=== PATIENT | female | born 1975 | race Two or more races ===

== ENCOUNTER 2017-05-07 19:46 | Emergency (ER) | payer OTHER ==
--- NOTE | 2017-05-07 20:12 | PDOC ---
Rapid Medical Evaluation Time Seen by Provider: 05/07/17 20:04 Medical Evaluation: Allergies Allergy/AdvReac Type Severity Reaction Status Date / Time cefazolin AdvReac Itching Verified 04/29/17 11:58 05/07/17 20:06 I have performed a brief in-person evaluation of this patient. I have performed a brief in-person evaluation of this patient. The patient presents with a chief complaint of: continual drainage from left arm wound, now with generalized rash. Completed clindamycin on Thursday. Pertinent physical exam findings: noted generalized papular rash greater around left forearm, wound draining ss fluid I have ordered the following: The patient will proceed to the ED for further evaluation. 05/07/17 20:09
[2017-05-07 21:04] VITALS: BP 107/70; PULSE 84; TEMP 98.2; BMI 28.3
[2017-05-07] MEDS ORDERED: RANITIDINE HCL 150 MG TABLET (FP) PO ONE (21:48)
[2017-05-07] MEDS ORDERED: diphenhydrAMINE HCL 25 MG CAPSULE (FP) PO ONE ×2 (21:48→21:52)
[2017-05-07] MEDS ORDERED: DEXAMETHASONE SOD PHOSPHATE 10 MG/1 ML VIAL IM ONE (21:49)
[2017-05-07] MEDS ORDERED: RANITIDINE HCL 150 MG TABLET (FP) ONE (21:52)
[2017-05-07] MEDS ORDERED: DEXAMETHASONE SOD PHOSPHATE 10 MG/1 ML VIAL ONE (21:52)
--- NOTE | 2017-05-07 21:53 | PDOC ---
History of Present Illness - General Chief Complaint: Rash Stated Complaint: RASH Time Seen by Provider: 05/07/17 20:04 History Source: Patient Exam Limitations: No Limitations - History of Present Illness Initial Comments: 05/07/17 21:49 Patient came for evaluation of diffuse pruritic rash covering all of body. was admitted last week for abscess of her left forearm, received 3 days of IV antibiotics and was discharged home on by mouth clindamycin. has never had an ALLERGY to any medication or antibiotics. Completed the course of clindamycin by mouth 2 days ago. onset of rash occurred yesterday on her torso and has spread over all of body today. Denies facial swelling with swelling tongue swelling or difficulty breathing although has some mild sore throat pain. Denies fever, states left arm abscess is resolving well. Timing/Duration: unsure, 24 hours Severity: moderate, severe Associated Symptoms: reports: malaise, rash. denies: fever/chills, nausea/ vomiting Past History - Travel Traveled outside of the country in the last 30 days: No Close contact w/someone who was outside of country & ill: No - Past Medical History Allergies/Adverse Reactions: Allergies Allergy/AdvReac Type Severity Reaction Status Date / Time cefazolin AdvReac Itching Verified 05/07/17 20:08 Home Medications: Ambulatory Orders Cetirizine HCl [Zyrtec -] 10 mg PO DAILY #10 tablet 05/07/17 Diphenhydramine HCl [Benadryl -] 25 mg PO Q8H PRN #21 capsule 05/07/17 Ranitidine [Zantac -] 300 mg PO BID #20 tablet 05/07/17 Anemia: No Asthma: No Cancer: No Cardiac Disorders: No CVA: No COPD: No CHF: No Dementia: No Diabetes: No GI Disorders: No Disorders: No HTN: No Hypercholesterolemia: No Liver Disease: No Seizures: No Thyroid Disease: No - Surgical History Abdominal Surgery: No Appendectomy: No Cardiac Surgery: No Cholecystectomy: No Lung Surgery: No Neurologic Surgery: No Orthopedic Surgery: No - Suicide/Smoking/Psychosocial Hx Smoking History: Never smoked Have you smoked in the past 12 months: No Information on smoking cessation initiated: No Hx Alcohol Use: No Drug/Substance Use Hx: No Substance Use Type: None Hx Substance Use Treatment: No Review of Systems - Review of Systems Able to Perform ROS?: Yes Is the patient limited Micronesian proficient: Yes Constitutional: Yes: Symptoms Reported, See HPI, Loss of Appetite, Malaise. No : Chills, Fever HEENTM: Yes: See HPI. No: Symptoms Reported, Throat Pain, Throat Swelling, Mouth Pain Respiratory: Yes: See HPI. No: Symptoms reported, Cough, Wheezing *Physical Exam - Vital Signs Last Vital Signs Temp Pulse Resp BP Pulse Ox 98.2 F 84 18 107/70 99 05/07/17 21:02 05/07/17 21:02 05/07/17 21:02 05/07/17 21:02 05/07/17 21:02 - Physical Exam General Appearance: Yes: Nourished, Appropriately Dressed, Apparent Distress, Mild Distress HEENT: positive: TMs Normal, Pharynx Normal (redness swelling exudate or airway edema) Neck: positive: Supple. negative: Tender, Lymphadenopathy (R), Lymphadenopathy (L) Respiratory/Chest: positive: Lungs Clear, Normal Breath Sounds. negative: Wheezing Cardiovascular: positive: Regular Rate Integumentary: positive: Other (maculopapular rash blanching and pruritic lesions covering all of including face neck torso and extremities. Has and granulating well without purulent drainage or fluctuance to left lateral forearm. 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 Improved after Benadryl, Zantac, and 10 mg of by mouth Decadron. Understands need for continued antihistamineuse and follow-up with PMD in 2-3 days. Also understands if symptoms worsen or has swelling to face lips tongue or problhing to call 911. *DC/Admit/Observation/Transfer Diagnosis at time of Disposition: Allergic reaction caused by a drug Qualifiers: Encounter type: initial encounter Qualified Code(s): T78.40XA - Allergy, unspecified, initial encounter - Discharge Dispostion Disposition: HOME Condition at time of disposition: Stable Admit: No - Patient Instructions Printed Discharge Instructions: DI for Adverse Drug Reaction -- Allergic Additional Instructions: Rest, drink lots of fluids: Teas, water, soups Saltwater gargles. Consider humidifier in room at night Lots of handwashing and good hygiene Continue antihistamines daily until rash is resolvedr; Zyrtec, Claritin, Gerda during the daytime and Benadryl at nighttime as will make sleepy Zantac once in AM and repeat at night= both these medications for 3 days. Tylenol or Motrin for fever and pain Followup with private physician in one to 2 days Consider following up with an clinical tech/flower arranger for skin testing and possible allergy shots Return to emergency department for worsened symptoms, swelling to face, tongue, probllems breathing, fevers, dehydration - Post Discharge Activity Forms/Work/School Notes: Back to Work
== END 2017-05-07 22:35 | disposition home or self-care (01) ==
LOC: JERFT 19:46 → SUPCPDRO 19:46 → JERFT 22:35
PROC: 3E0233Z Introduction of Anti-inflammatory into Muscle, Percutaneous Approach (ICD-10-PCS; principal; 2017-05-07)
DX: T36.8X5A Adverse effect of other systemic antibiotics, initial encounter (principal)
CPT/HCPCS: 99281-25

== ENCOUNTER 2019-05-23 22:21 | Emergency (ER) | payer OTHER ==
[2019-05-23 22:27] VITALS: BP 119/52; PULSE 71; TEMP 98.8; BMI 28.3
--- NOTE | 2019-05-24 00:59 | PDOC ---
*Physical Exam - Vital Signs Last Vital Signs Temp Pulse Resp BP Pulse Ox 98.8 F 71 18 119/52 L 100 05/23/19 22:25 05/23/19 22:25 05/23/19 22:25 05/23/19 22:25 05/23/19 22:25 Medical Decision Making - Medical Decision Making 05/24/19 00:59 Patient seen by the advanced practice provider under my direct supervision. Ancillary testing reviewed as necessary. I agree with plan as outlined by the advanced practice provider. Discharge - Discharge Information Problems reviewed: Yes Clinical Impression/Diagnosis: URI (upper respiratory infection) Qualifiers: URI type: unspecified URI Qualified Code(s): J06.9 - Acute upper respiratory infection, unspecified Disposition: HOME - Additional Discharge Information Prescriptions: Fluticasone Prop 0.05% Nasal [Flonase -] 1 - 2 spray NS BID #1 spray.pump Ibuprofen 600 mg PO QID PRN #20 tablet PRN Reason: Pain - Follow up/Referral - Patient Discharge Instructions Patient Printed Discharge Instructions: Common Cold Additional Instructions: Drink plenty of fluids. Take ibuprofen every 6 hours as needed for pain Use Flonase as prescribed. Follow-up with your doctor as soon as possible. Return to the emergency room for any worsening symptoms. - Post Discharge Activity Work/Back to School Note: Back to Work
[2019-05-24] MEDS ORDERED: IBUPROFEN 600 MG TABLET (FP) PO ONE ×2 (01:01→03:02)
--- NOTE | 2019-05-24 01:01 | PDOC ---
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 denies fever. reports chills. denies nausea, vomiting, diarrhea denies recent travel, prolonged sitting, OCP use Past History - Past Medical History Allergies/Adverse Reactions: Allergies Allergy/AdvReac Type Severity Reaction Status Date / Time cefazolin AdvReac Itching Verified 05/23/19 22:27 Home Medications: Ambulatory Orders Cetirizine HCl [Zyrtec -] 10 mg PO DAILY #10 tablet 05/07/17 Diphenhydramine HCl [Benadryl -] 25 mg PO Q8H PRN #21 capsule 05/07/17 Ranitidine [Zantac -] 300 mg PO BID #20 tablet 05/07/17 Fluticasone Prop 0.05% Nasal [Flonase -] 1 - 2 spray NS BID #1 spray.pump Ibuprofen 600 mg PO QID PRN #20 tablet 05/24/19 Anemia: No Asthma: No Cancer: No Cardiac Disorders: No CVA: No COPD: No CHF: No Dementia: No Diabetes: No GI Disorders: No Disorders: No HTN: No Hypercholesterolemia: No Liver Disease: No Seizures: No Thyroid Disease: No - Surgical History Abdominal Surgery: No Appendectomy: No Cardiac Surgery: No Cholecystectomy: No Lung Surgery: No Neurologic Surgery: No Orthopedic Surgery: No - Psycho Social/Smoking Cessation Hx Smoking History: Never smoked Have you smoked in the past 12 months: No Information on smoking cessation initiated: No Hx Alcohol Use: No Drug/Substance Use Hx: No Substance Use Type: None Hx Substance Use Treatment: No Review of Systems - Review of Systems Able to Perform ROS?: Yes Is the patient limited Russian proficient: No Constitutional: Yes: Chills. No: Symptoms Reported, See HPI, Diaphoresis, Fever , Loss of Appetite, Malaise, Night Sweats, Weakness, Weight Stable, Unintentional Wgt. Loss, Unexplained wgt Loss, Other HEENTM: Yes: Nose Congestion, Throat Pain Respiratory: Yes: Cough Cardiac (ROS): Yes: Chest Pain (worse with movement) *Physical Exam - Vital Signs Last Vital Signs Temp Pulse Resp BP Pulse Ox 98.8 F 71 18 119/52 L 100 05/23/19 22:25 05/23/19 22:25 05/23/19 22:25 05/23/19 22:25 05/23/19 22:25 - Physical Exam General Appearance: Yes: Appropriately Dressed HEENT: positive: Pharynx Normal, Nasal Congestion Respiratory/Chest: positive: Chest Tender (left anterior chest tenderness. reproducible pain), Lungs Clear, Normal Breath Sounds Cardiovascular: positive: Regular Rhythm, Regular Rate Gastrointestinal/Abdominal: positive: Normal Bowel Sounds, Soft. negative: Tender Medical Decision Making - Medical Decision Making 05/24/19 01:12 A: URI P: ibuprofen ekg chest xray Discharge - Discharge Information Problems reviewed: Yes Clinical Impression/Diagnosis: URI (upper respiratory infection) Qualifiers: URI type: unspecified URI Qualified Code(s): J06.9 - Acute upper respiratory infection, unspecified Disposition: HOME - Additional Discharge Information Prescriptions: Fluticasone Prop 0.05% Nasal [Flonase -] 1 - 2 spray NS BID #1 spray.pump Ibuprofen 600 mg PO QID PRN #20 tablet PRN Reason: Pain - Follow up/Referral - Patient Discharge Instructions Patient Printed Discharge Instructions: Common Cold Additional Instructions: Drink plenty of fluids. Take ibuprofen every 6 hours as needed for pain Use Flonase as prescribed. Follow-up with your doctor as soon as possible. Return to the emergency room for any worsening symptoms. - Post Discharge Activity Work/Back to School Note: Back to Work
--- NOTE | 2019-05-24 10:32 | EKG ---
Test Reason : Blood Pressure : / mmHG Vent. Rate : 056 BPM Atrial Rate : 056 BPM P-R Int : 162 ms QRS Dur : 084 ms QT Int : 406 ms P-R-T Axes : 062 029 043 degrees QTc Int : 391 ms SINUS BRADYCARDIA OTHERWISE NORMAL ECG Confirmed by MD JACINTA, KEYON ([id number]) on 05/24/2019 10:32:19 AM Referred By: Confirmed By:KEYON WORKMAN MD
== END 2019-05-24 03:00 | disposition home or self-care (01) ==
LOC: JER 22:21
DX: J06.9 Acute upper respiratory infection, unspecified (principal); Z88.1 Allergy status to other antibiotic agents
CPT/HCPCS: 71046-TC-FY; 93005; 93010; 99281-25

== ENCOUNTER 2019-08-23 11:19 | Emergency (ER) | payer OTHER ==
[2019-08-23 11:40] VITALS: TEMP 98.1; BMI 25.7
[2019-08-23] MEDS ORDERED: SODIUM CHLORIDE 1,000 ML IV STA (11:54)
[2019-08-23] MEDS ORDERED: ONDANSETRON 4 MG/2 ML VIAL IVPUSH ONE (11:55)
[2019-08-23] MEDS ORDERED: KETOROLAC TROMETHAMINE 15 MG/ML VIAL IVPUSH ONE (11:56)
--- NOTE | 2019-08-23 12:11 | PDOC ---
History of Present Illness - General History Source: Patient Exam Limitations: No Limitations - History of Present Illness Initial Comments: 08/23/19 12:05 Patient is a 44-year-old female presents to the ED with sudden onset of left lower and suprapubic abdominal pain. She states the pain was sharp and strong. It radiates to her left flank. She denies any dysuria or hematuria. She states the pain was so strong that she vomited one time and it was yellow/white in color. She denies any diarrhea. She has not taken anything for pain. She states the pain has not subsided since this morning. She denies any fevers or chills. The patient denies any past medical history and is allergic to cefazolin. <Letty Tineo - Last Filed: 08/23/19 15:06> <Neisha Velasco - Last Filed: 08/26/19 14:58> - General Chief Complaint: Pain Stated Complaint: ABD PAIN/VOMITING Time Seen by Provider: 08/23/19 11:47 Past History - Past Medical History Anemia: No Asthma: No Cancer: No Cardiac Disorders: No CVA: No COPD: No CHF: No Dementia: No Diabetes: No GI Disorders: No Disorders: No HTN: No Hypercholesterolemia: No Liver Disease: No Seizures: No Thyroid Disease: No - Surgical History Abdominal Surgery: No Appendectomy: No Cardiac Surgery: No Cholecystectomy: No Lung Surgery: No Neurologic Surgery: No Orthopedic Surgery: No - Psycho Social/Smoking Cessation Hx Smoking History: Never smoked Have you smoked in the past 12 months: No Hx Alcohol Use: No Drug/Substance Use Hx: No Substance Use Type: None Hx Substance Use Treatment: No <Letty Tineo - Last Filed: 08/23/19 15:06> <Neisha Velasco - Last Filed: 08/26/19 14:58> - Past Medical History Allergies/Adverse Reactions: Allergies Allergy/AdvReac Type Severity Reaction Status Date / Time cefazolin AdvReac Itching Verified 08/23/19 11:36 Home Medications: Ambulatory Orders Hydrocodone/Acetaminophen [[place] 5-325 Tablet] 1 each PO Q6H PRN 3 Days #12 tablet MDD 4 08/23/19 Ranitidine [Zantac -] 150 mg PO DAILY 08/23/19 Review of Systems - Review of Systems Comments:: 08/23/19 12:06 - Review of Systems Able to Perform ROS?: Yes Constitutional: No: Fever, Chills, Loss of Appetite, Night Sweats, Weakness HEENTM: No: Eye Pain, Vision changes, Ear Pain, Throat Pain, Throat Swelling, Mouth Pain, Difficulty Swallowing Respiratory: No: Cough, Shortness of Breath, Wheezing, Sputum Production Cardiac (ROS): No: Chest Pain, Chest Tightness, Palpitations, Irregular Heart Beat, Edema ABD/GI: No: Diarrhea; Positive: nausea, vomiting, left lower abdominal pain, left flank pain : No Dysuria, No Hematuria, No Frequency, No Urgency, No Vaginal Discharge/ Pain Musculoskeletal: No: Muscle Pain, Back Pain, Joint Pain, Muscle Weakness, Neck Pain Integumentary: No: Lesions, Rash Neurological: No: Headache, Numbness, Tingling, Weakness, Speech Difficulties <Letty Tineo - Last Filed: 08/23/19 15:06> *Physical Exam - Vital Signs Last Vital Signs Temp Pulse Resp BP Pulse Ox 98.1 F 78 18 111/60 98 08/23/19 11:36 08/23/19 11:36 08/23/19 11:36 08/23/19 11:36 08/23/19 11:36 - Physical Exam 08/23/19 12:08 - Physical Exam General Appearance: Nourished, Appropriately Dressed, No Distress HEENT: EOMI, Normal Voice, No Pharyngeal Erythema, No Muffled/Hoarse voice, No Tonsillar Exudate, No Tonsillar Erythema, No Nasal Congestion, No Rhinorrhea, Hearing Grossly Normal, TMs Normal, No TM Bulging, No TM Dullness, No TM Erythema Neck: Supple, No Lymphadenopathy (R), No Lymphadenopathy (L), No Rigidity, No Decreased range of motion Respiratory/Chest: Lungs Clear, Normal Breath Sounds. No Respiratory Distress, No Accessory Muscle Use Cardiovascular: Regular Rhythm, Regular Rate, S1, S2 Gastrointestinal/Abdominal: Normal Bowel Sounds, Soft. No Guarding, No Rebound, No Rigidity; Left mid and lower abdominal tenderness to palpation, + suprapubic tenderness to palpation, no CVA tenderness b/l Musculoskeletal: Normal Inspection. No Decreased Range of Motion Extremity: Normal Capillary Refill, Normal Inspection Integumentary: Normal Color, Dry. No Rash Neurologic: copy coordinator II-XII NML intact, Fully Oriented, Alert, Normal Mood/Affect, Normal Response <Letty iTneo - Last Filed: 08/23/19 15:06> - Vital Signs Last Vital Signs Temp Pulse Resp BP Pulse Ox 98.1 F 71 18 101/68 99 08/23/19 11:36 08/23/19 15:57 08/23/19 15:57 08/23/19 15:57 08/23/19 15:57 <Neisha Velasco - Last Filed: 08/26/19 14:58> ED Treatment Course - LABORATORY CBC & Chemistry Diagram: 08/23/19 12:59 08/23/19 12:59 - ADDITIONAL ORDERS Additional order review: 08/23/19 15:07 Laboratory Tests 08/23/19 08/23/19 12:59 12:59 Urine Color Yellow Urine Appearance Clear Urine pH 8.5 H D Ur Specific [place] 1.010 Urine Protein Negative Urine Glucose (UA) Negative Urine Ketones Negative Urine Blood Negative Urine Nitrite Negative Urine Bilirubin Negative Urine Urobilinogen 0.2 Ur Leukocyte Esterase Negative Urine HCG, Qual Negative - RADIOLOGY Radiology Studies Ordered: Category Date Time Status ABDOMEN & PELVIS CT W/O CONTR [CT] Stat CT Scan 08/23/19 11:56 Ordered <Letty Tineo - Last Filed: 08/23/19 15:06> - LABORATORY CBC & Chemistry Diagram: 08/23/19 12:59 08/23/19 12:59 - ADDITIONAL ORDERS Additional order review: 08/23/19 12:59 Urine Culture - Final Urine - Urine Clean Catch NO GROWTH OBTAINED 08/23/19 12:59 RBC 4.27 MCV 91.2 MCHC 33.6 RDW 13.1 MPV 6.8 L Neutrophils % 60.3 Lymphocytes % 30.1 D Monocytes % 8.8 Eosinophils % 0.4 D Basophils % 0.4 - Medications Given in the ED: ED Medications Discontinued Medications Generic Name Dose Route Start Last Admin Trade Name Freq PRN Reason Stop Dose Admin Sodium Chloride 1,000 mls @ 1,000 mls/hr 08/23/19 11:54 08/23/19 12:35 Normal Saline - IV 08/23/19 12:53 1,000 mls/hr ASDIR STA Administration Ketorolac Tromethamine 15 mg 08/23/19 11:56 08/23/19 12:55 Toradol Injection - IVPUSH 08/23/19 11:57 15 mg ONCE ONE Administration Ondansetron HCl 4 mg 08/23/19 11:55 08/23/19 12:50 Zofran Injection IVPUSH 08/23/19 11:56 4 mg ONCE ONE Administration <Neisha Velasco - Last Filed: 08/26/19 14:58> Medical Decision Making - Medical Decision Making 08/23/19 12:09 Assessment: Patient is a 44-year-old female with suprapubic, left lower quadrant and left mid abdominal pain that started at 6:45 today. Plan: -Labs ordered -Spiral CT ordered -IV, fluids, Toradol, Zofran ordered -Will reassess 08/23/19 15:07 The patient has been made aware that she has a left kidney stone that is 2.6 mm. She has been made aware that she will likely pass the stone without difficulty. She has been encouraged to increase fluids and take Motrin or [place] for severe pain. She should follow-up with her primary doctor within 1 to 2 days for repeat evaluation. She understands and agrees with this treatment plan and she is stable for discharge. <Letty Tineo - Last Filed: 08/23/19 15:06> - Medical Decision Making I reviewed the case with the mid-level practitioner and agree with the mid- level practitioner's assessment, diagnosis and disposition. <Neisha Velasco - Last Filed: 08/26/19 14:58> Discharge - Discharge Information Problems reviewed: Yes <Letty Tineo - Last Filed: 08/23/19 15:06> <Neisha Velasco - Last Filed: 08/26/19 14:58> - Discharge Information Clinical Impression/Diagnosis: Left renal stone Condition: Stable Disposition: HOME - Additional Discharge Information Prescriptions: Hydrocodone/Acetaminophen [[place] 5-325 Tablet] 1 each PO Q6H PRN 3 Days #12 tablet MDD 4 PRN Reason: pain - Patient Discharge Instructions Patient Printed Discharge Instructions: DI for Kidney Stones Additional Instructions: Get plenty of rest and drink plenty of fluids. Take Motrin as needed for pain and if pain is too severe you can take [place]. Be sure to see your primary doctor in 1 to 2 days for repeat evaluation. Return for high fevers, shaking chills, profuse vomiting or any other worsening symptoms. Print Language: TAJIK - Post Discharge Activity Work/Back to School Note: Back to Work
[2019-08-23] MEDS ORDERED: KETOROLAC TROMETHAMINE 15 MG/ML VIAL ONE (12:19)
[2019-08-23] MEDS ORDERED: ONDANSETRON 4 MG/2 ML VIAL ONE (12:19)
[2019-08-23 13:27] LABS: BASO % 0.4 % (0-2.0); EOS % 0.4 % (0-4.5); HEMATOCRIT 38.9 % (32.4-45.2); HEMOGLOBIN 13.1 GM/dL (10.7-15.3); LYMPH % 30.1 % (8-40); MCH 30.7 pg (25.7-33.7); MCHC 33.6 g/dl (32.0-36.0); MEAN CELL VOLUME 91.2 fl (80-96); MEAN PLT VOLUME 6.8 fl (7.5-11.1); MONO % 8.8 % (3.8-10.2); NEUT % 60.3 % (42.8-82.8); PLATELET COUNT 340 K/MM3 (134-434); RBC 4.27 M/mm3 (3.60-5.2); RDW 13.1 % (11.6-15.6); WHITE BLOOD COUNT 7.7 K/mm3 (4.0-10.0)
[2019-08-23 13:32] LABS: PH,URINE 8.5 (5.0-8.0); URINE APPEARANCE CLEAR; URINE BILIRUBIN NEGATIVE (NEGATIVE); URINE COLOR YELLOW; URINE GLUCOSE (UA) NEGATIVE (NEGATIVE); URINE KETONE NEGATIVE (NEGATIVE); URINE LEUK ESTERASE NEGATIVE (NEGATIVE); URINE NITRITE NEGATIVE (NEGATIVE); URINE PROTEIN NEGATIVE (NEGATIVE); URINE UROBILINOGEN 0.2 mg/dL (0.2-1.0)
[2019-08-23 13:59] LABS: ALBUMIN 3.9 g/dl (3.4-5.0); BILIRUBIN,TOTAL 0.3 mg/dL (0.2-1); BLOOD UREA NITROGEN 7.9 mg/dL (7-18); CALCIUM 8.6 mg/dL (8.5-10.1); CREATININE 0.6 mg/dL (0.55-1.3); POTASSIUM 3.8 mmol/L (3.5-5.1); TOT PROT 7.8 g/dl (6.4-8.2)
[2019-08-23 15:59] VITALS: BP 101/68; PULSE 71
== END 2019-08-23 15:59 | disposition home or self-care (01) ==
LOC: JER 11:19
PROC: 3E0337Z Introduction of Electrolytic and Water Balance Substance into Peripheral Vein, Percutaneous Approach (ICD-10-PCS; principal; 2019-08-23)
PROC: 3E033GC Introduction of Other Therapeutic Substance into Peripheral Vein, Percutaneous Approach (ICD-10-PCS; 2019-08-23)
PROC: 3E0333Z Introduction of Anti-inflammatory into Peripheral Vein, Percutaneous Approach (ICD-10-PCS; 2019-08-23)
DX: N20.0 Calculus of kidney (principal)
CPT/HCPCS: 36415; 74176-TC; 80053; 81003; 83690; 84703; 85025; 87086; 96361; 96374; 96375; 99285-25; J7030

== ENCOUNTER 2020-01-13 08:32 | Emergency (ER) | payer OTHER ==
[2020-01-13] MEDS ORDERED: ACETAMINOPHEN 325 MG TABLET (FP) PO ONE (08:40)
[2020-01-13 08:43] VITALS: BMI 24.0
[2020-01-13] MEDS ORDERED: ACETAMINOPHEN 325 MG TABLET (FP) ONE (09:01)
--- NOTE | 2020-01-13 09:09 | PDOC ---
History of Present Illness - General Chief Complaint: SIRS, Suspected/Possible Stated Complaint: WEAKNESS Time Seen by Provider: 01/13/20 08:48 History Source: Patient Exam Limitations: No Limitations - History of Present Illness Initial Comments: 01/13/20 09:08 44y previously healthy F presenting w 1wk dysuria, generalized weakness, headaches, subjective fevers/chills since 5am this morning. Took a sleep aid tea per PCP w/o relief. Denies cough, n/v, chest pain, SOB, diarrhea. Past History - Medical History Allergies/Adverse Reactions: Allergies Allergy/AdvReac Type Severity Reaction Status Date / Time cefazolin AdvReac Itching Verified 01/13/20 08:43 Anemia: No Asthma: No Cancer: No Cardiac Disorders: No CVA: No COPD: No CHF: No Dementia: No Diabetes: No GI Disorders: No Disorders: No HTN: No Hypercholesterolemia: No Liver Disease: No Seizures: No Thyroid Disease: No - Surgical History Abdominal Surgery: No Appendectomy: No Cardiac Surgery: No Cholecystectomy: No Lung Surgery: No Neurologic Surgery: No Orthopedic Surgery: No - Immunization History Immunization Up to Date: Yes - Psycho-Social/Smoking History Smoking History: Never smoked Have you smoked in the past 12 months: No - Substance Abuse Hx (Audit-C & DAST Scrn) How often the patient has a drink containing alcohol: Never Score: In Men: 4 or > Positive; In Women: 3 or > Positive: 0 Screen Result (Pos requires Nsg. Audit-10AR): Negative In the last yr the pt used illegal drug/Rx for NonMed reason: No Score: Yes response is considered Positive: 0 Screen Result (Positive result requires Nsg. DAST-10): Negative Review of Systems - Review of Systems Constitutional: Yes: Chills, Fever HEENTM: No: Eye Pain, Nose Congestion Respiratory: No: Cough, Shortness of Breath Cardiac (ROS): No: Chest Pain, Palpitations ABD/GI: No: Abdominal Distended, Constipated, Diarrhea, Nausea, Vomiting : Yes: Burning. No: Flank Pain Musculoskeletal: No: Back Pain, Joint Pain Integumentary: No: Bruising, Flushing Neurological: Yes: Headache. No: Seizure Psychiatric: No: Anxiety, Depression Endocrine: No: Intolerance to Cold, Intolerance to Heat Hematologic/Lymphatic: No: Anemia, Blood Clots *Physical Exam - Vital Signs Last Vital Signs Temp Pulse Resp BP Pulse Ox 101.8 F H 102 H 16 124/70 98 01/13/20 08:41 01/13/20 08:41 01/13/20 08:41 01/13/20 08:41 01/13/20 08:41 - Physical Exam General Appearance: Yes: Nourished, Appropriately Dressed. No: Apparent Distress HEENT: positive: EOMI, CAT, Normal Voice, Hearing Grossly Normal. negative: Scleral Icterus (R), Scleral Icterus (L), Nasal Congestion Neck: positive: Supple. negative: Tender, Rigid Respiratory/Chest: positive: Lungs Clear, Normal Breath Sounds. negative: Chest Tender, Respiratory Distress, Crackles, Rales, Rhonchi, Stridor, Wheezing Cardiovascular: positive: Regular Rhythm, S1, S2, Tachycardia. negative: Edema, Murmur Gastrointestinal/Abdominal: positive: Normal Bowel Sounds, Flat, Soft. negativ e: Tender, Organomegaly Integumentary: positive: Normal Color, Warm Neurologic: positive: Fully Oriented, Alert, Normal Mood/Affect, Normal Response, Responsive ED Treatment Course - LABORATORY CBC & Chemistry Diagram: 01/13/20 09:50 01/13/20 09:50 Medical Decision Making - Medical Decision Making 01/13/20 10:12 EKG - NSR, HR 95, Qtc 417, no ST changes CXR - clear lung bonilla WBC 18 w L shift --- 44y previously healthy F presenting w 1wk dysuria, generalized weakness, headaches, subjective fevers/chills since 5am this morning Covid vs meningitis. Low concern for UTI (clean) vs (neg) vs PNA (clear lung bonilla) vs meningitis (negative LP) vs (neg) Given tylenol, vanc, meropenem (severe allergy to cefazolin), reglan, 1L NS, zofran New neck pain on re-eval, obtained consent, completed LP. Symptoms resolved on re-eval after meds given DC w PCP f/u Discharge - Discharge Information Problems reviewed: Yes Clinical Impression/Diagnosis: Headache Qualifiers: Headache type: unspecified Headache chronicity pattern: acute headache Intractability: not intractable Qualified Code(s): R51 - Headache Fever Qualifiers: Fever type: unspecified Qualified Code(s): R50.9 - Fever, unspecified Condition: Improved Disposition: HOME - Follow up/Referral - Patient Discharge Instructions Patient Printed Discharge Instructions: DI for Fever (Symptom) -- Adult Additional Instructions: Your workup did not show anything concerning. You do not have signs of a lung, urine, or spinal cord infection. Take tylenol or ibuprofen if you have a fever or headache Follow up with your primary care doctor --- Kendall trabajo no mostr nada preocupante. No tiene signos de infeccin pulmonar, urinaria o de mdula hernandez. [place] tylenol o ibuprofeno si tiene fiebre o dolor de jaspal. Colette un seguimiento con kendall mdico de atencin primaria. Print Language: MICRONESIAN - Post Discharge Activity
[2020-01-13 09:26] LABS: PH,URINE 8.5 (5.0-8.0); URINE APPEARANCE CLEAR; URINE BILIRUBIN NEGATIVE (NEGATIVE); URINE COLOR YELLOW; URINE GLUCOSE (UA) NEGATIVE (NEGATIVE); URINE KETONE NEGATIVE (NEGATIVE); URINE LEUK ESTERASE NEGATIVE (NEGATIVE); URINE NITRITE NEGATIVE (NEGATIVE); URINE PROTEIN NEGATIVE (NEGATIVE); URINE UROBILINOGEN 0.2 mg/dL (0.2-1.0)
[2020-01-13 09:41] LABS: HCG,QUALITATIVE URINE Negative
--- NOTE | 2020-01-13 10:14 | PDOC ---
Documentation entered by Janeth Shea SCRIBE, acting as scribe for Ilan Burch MD. Ilan Burch MD: This documentation has been prepared by the Shabbir masterson Brenda, SCRIBE, under my direction and personally reviewed by me in its entirety. I confirm that the documentation accurately reflects all work, treatment, procedures, and medical decision making performed by me. Attending Attestation - Resident Resident Name: Klaus Estrella - ED Attending Attestation I have performed the following: I have examined & evaluated the patient, The case was reviewed & discussed with the resident, I agree w/resident's findings & plan, Exceptions are as noted - HPI HPI: 01/13/20 09:28 The patient is a 44 year old female with no significant PMH who presents to the emergency department for evaluation of weakness and nausea since 5:00am this morning. The patient also endorses diffuse body aches (back pain, leg pain, joint pain, headache, lower abd pain). She also admits to mild dysuria for the past several days. The patient denies chest pain, shortness of breath, and dizziness. Denies fever, chills, nausea, vomiting, diarrhea and constipation. Denies frequency, urgency and hematuria. The patient denies any other symptoms. no recent travel o rsick contacts. son and has been fine. Allergies: NKA Social history: No reported hx of tobacco use, alcohol use or illicit drug use. - Physicial Exam PE: 01/13/20 10:09 GENERAL: The patient is awake, alert, and fully oriented, Nontoxic - in no acute distress. HEAD: Normocephalic, atraumatic. EYES: extraocular movements intact, sclera anicteric, conjunctiva clear. ENT: Normal voice, Moist mucous membranes. NECK: Normal range of motion, supple LUNGS: Breath sounds equal, clear to auscultation bilaterally. No wheezes, no rhonchi, no rales. HEART: slightly tachy, normal S1 and S2 without murmur, rub or gallop. ABDOMEN: Soft, nontender, No guarding, no rebound. No CVA tenderness EXTREMITIES: Normal range of motion, no edema. NEUROLOGICAL: No facial assymetry, Normal speech, PSYCH: Normal mood, normal affect. SKIN: hot to touch, Dry, normal turgor, - Medical Decision Making 01/13/20 09:25 44y F no pmhx presents with complaint of weakness, nasea, headache, body aches since this morning. Pt also endorse some dysuria for week. N orecent travel or sick contacts. Denie any cough, abd pain, cp, sob. ddx includes but not limited to uti, viral syndrome, will ck ua, cbc, cmp nanci lgive tylenol for body aches and fever 01/13/20 12:52 pts labs noted for leukocytosis ua negative unclear source. with headache/neck pain, consider meningitis LP was peformed for meningitis under my direct supervision by Dr. Vela and Dr. Jones. Initial attempt by Dr. Estrella was dry, second attepmt from Dr. Jones was successful. will give abx until LP results back 01/13/20 16:52 pt feeling better LP results inconsistent with infection will dc the pt with pmd fu return precautions were discussed. supportive care at home. Discharge - Discharge Information Problems reviewed: Yes Clinical Impression/Diagnosis: Headache Qualifiers: Headache type: tension-type Headache chronicity pattern: acute headache Intractability: not intractable Qualified Code(s): G44.209 - Tension-type headache, unspecified, not intractable Fever Qualifiers: Fever type: unspecified Qualified Code(s): R50.9 - Fever, unspecified Condition: Improved Disposition: HOME - Follow up/Referral Referrals: Trey Max MD [Primary Care Provider] - - Patient Discharge Instructions Patient Printed Discharge Instructions: DI for Fever (Symptom) -- Adult Additional Instructions: Your workup did not show anything concerning. You do not have signs of a lung, urine, or spinal cord infection. Take tylenol or ibuprofen if you have a fever or headache Follow up with your primary care doctor --- Cowan trabajo no mostr nada preocupante. No tiene signos de infeccin pulmonar, urinaria o de mdula hernandez. [place] tylenol o ibuprofeno si tiene fiebre o dolor de jaspal. Colette un seguimiento con cowan mdico de atencin primaria. Print Language: INDIAN - Post Discharge Activity
[2020-01-13 10:34] LABS: BASO % 0.1 % (0-2.0); HEMATOCRIT 35.6 % (32.4-45.2); HEMOGLOBIN 11.7 GM/dL (10.7-15.3); LYMPH % 5.2 % (8-40); MCH 28.7 pg (25.7-33.7); MCHC 32.9 g/dl (32.0-36.0); MEAN CELL VOLUME 87.2 fl (80-96); MEAN PLT VOLUME 6.9 fl (7.5-11.1); NEUT % 88.7 % (42.8-82.8); PLATELET COUNT 315 K/MM3 (134-434); RBC 4.08 M/mm3 (3.60-5.2); RDW 13.6 % (11.6-15.6); WHITE BLOOD COUNT 18.5 K/mm3 (4.0-10.0)
[2020-01-13 11:09] LABS: ALBUMIN 3.7 g/dl (3.4-5.0); BILIRUBIN,TOTAL 0.4 mg/dL (0.2-1); BLOOD UREA NITROGEN 9.7 mg/dL (7-18); CALCIUM 8.6 mg/dL (8.5-10.1); CREATININE 0.6 mg/dL (0.55-1.3); POTASSIUM 3.6 mmol/L (3.5-5.1); TOT PROT 7.4 g/dl (6.4-8.2)
[2020-01-13] MEDS ORDERED: VANCOMYCIN 1 GM in D5W (PRE-DOCKED) 1,000 MG/250 ML IVPB ONE (12:52)
[2020-01-13] MEDS ORDERED: METOCLOPRAMIDE HCL INJECTION 10 MG/2 ML VIAL IVPB ONE (12:52)
[2020-01-13] MEDS ORDERED: KETOROLAC TROMETHAMINE 30 MG/1 ML VIAL IVPUSH ONE (12:52)
[2020-01-13] MEDS ORDERED: SODIUM CHLORIDE 0.9% 500 ML INFUS.BAG IV ONE (12:52)
[2020-01-13] MEDS ORDERED: MEROPENEM 2 GM in DEXTROSE 5%-WATER 100 ML IVPB ONE (12:57)
[2020-01-13] MEDS ORDERED: DEXAMETHASONE SOD PHOSPHATE 10 MG/1 ML VIAL IVPUSH ONE (13:00)
[2020-01-13] MEDS ORDERED: DEXAMETHASONE SOD PHOSPHATE 10 MG/1 ML VIAL ONE (13:20)
[2020-01-13] MEDS ORDERED: MEROPENEM 1 GM VIAL (RESTRICTED TO ID) IVPB ONE (13:20)
[2020-01-13] MEDS ORDERED: VANCOMYCIN 1 GRAM (PRE-DOCKED) 1,000 MG/250 ML BAG IVPB ONE (13:21)
[2020-01-13] MEDS ORDERED: METOCLOPRAMIDE HCL INJECTION 10 MG/2 ML VIAL ONE (13:21)
[2020-01-13] MEDS ORDERED: MEROPENEM 500 MG VIAL (RESTRICTED TO ID) IVPB ONE (13:22)
--- NOTE | 2020-01-13 13:35 | EKG ---
Test Reason : Blood Pressure : / mmHG Vent. Rate : 095 BPM Atrial Rate : 095 BPM P-R Int : 144 ms QRS Dur : 084 ms QT Int : 332 ms P-R-T Axes : 057 023 033 degrees QTc Int : 417 ms NORMAL SINUS RHYTHM WHEN COMPARED WITH ECG OF 24-MAY-2019 01:21, VENT. RATE HAS INCREASED BY 39 BPM NONSPECIFIC T WAVE ABNORMALITY, WORSE IN ANTERIOR LEADS Confirmed by VANESSA MINA MD ([id number]) on 01/13/2020 1:35:18 PM Referred By: Confirmed By:VANESSA MINA MD
[2020-01-13 13:50] LABS: CSF APPEARANCE CLEAR; CSF COLOR COLORLESS; CSF WBC 1
[2020-01-13] MEDS ORDERED: ONDANSETRON 4 MG/2 ML VIAL IVPUSH ONE (14:08)
[2020-01-13 14:45] LABS: BF GLUCOSE (CSF ONLY) 55 mg/dL (40-70)
[2020-01-13 16:44] VITALS: BP 102/60; PULSE 82; TEMP 100
== END 2020-01-13 16:26 | disposition home or self-care (01) ==
LOC: JER 08:32
PROC: 3E03329 Introduction of Other Anti-infective into Peripheral Vein, Percutaneous Approach (ICD-10-PCS; principal; 2020-01-13)
PROC: 3E033GC Introduction of Other Therapeutic Substance into Peripheral Vein, Percutaneous Approach (ICD-10-PCS; 2020-01-13)
PROC: 3E0337Z Introduction of Electrolytic and Water Balance Substance into Peripheral Vein, Percutaneous Approach (ICD-10-PCS; 2020-01-13)
DX: R51 Headache (principal); R50.9 Fever, unspecified
CPT/HCPCS: 36415; 71046-TC-FY; 80053; 81003; 82945; 84157; 84703; 85025; 87040; 87070; 87205; 93005; 93010; 96361; 96365; 96375; 96376; 99285-25; J1100; U0003

== ENCOUNTER 2020-01-16 08:21 | Emergency (ER) | payer OTHER ==
--- NOTE | 2020-01-16 08:30 | PDOC ---
Rapid Medical Evaluation Chief Complaint: Migraine Headache Time Seen by Provider: 01/16/20 08:26 Medical Evaluation: Allergies Allergy/AdvReac Type Severity Reaction Status Date / Time cefazolin AdvReac Itching Verified 01/13/20 08:43 vancomycin AdvReac Hives Verified 01/13/20 16:45 01/16/20 08:27 I have performed a brief in-person evaluation of this patient. The patient presents with a chief complaint of: no sig Pmhx present with complains of 3 days h/o severe headaches, nausea, dizziness, cough with yellow phlegm and tactile fevers. Denies recent travel Pertinent physical exam findings: Afebrile in mild distress from LOPEZ. lungs CTAB I have ordered the following: reglan, IV tylenol, CXR, IVF The patient will proceed to the ED for further evaluation. Discharge Disposition - Diagnosis Headache Qualifiers: Headache type: tension-type Headache chronicity pattern: acute headache Intractability: not intractable Qualified Code(s): G44.209 - Tension-type headache, unspecified, not intractable - Discharge Dispostion Condition at time of disposition: Stable - Referrals - Patient Instructions - Post Discharge Activity
[2020-01-16] MEDS ORDERED: METOCLOPRAMIDE HCL INJECTION 10 MG/2 ML VIAL IVPB ONE (08:32)
[2020-01-16] MEDS ORDERED: ACETAMINOPHEN 1000 MG/100 ML VIAL (NON FORMULARY) IVPB ONE (08:32)
[2020-01-16 08:34] VITALS: BMI 26.5
[2020-01-16] MEDS ORDERED: SODIUM CHLORIDE 1,000 ML IV STA (08:35)
--- NOTE | 2020-01-16 08:39 | PDOC ---
History of Present Illness - General Chief Complaint: Migraine Headache Stated Complaint: VOMITING/ HEADDACHE Time Seen by Provider: 01/16/20 08:26 History Source: Patient Exam Limitations: No Limitations, Language Barrier (cryacom) - History of Present Illness Initial Comments: 01/16/20 09:31 44F, paraguayan speaking, w/o PMH presenting with persistent severe band like headache since Thursday01/13/20 with interval development of nausea and nbnb vomiting. Unremitting headache that slightly improves w/ ibuprofen and tylenol.Pt was seen on 01/13/20 in this ED for 2 weeks of URI sx, SOB, headache, and fever; negative LP, dc'd home. Denies blurry vision, photophobia changes in hearing, numbness, tingling, weakness, neck pain. Continues to have episodic SOB that resolves w/ son's albuterol. Occasional productive cough. Denies cp, abd pain, PO intolerance. No sick contacts. Denies smoking, etoh, drugs Past History - Medical History Allergies/Adverse Reactions: Allergies Allergy/AdvReac Type Severity Reaction Status Date / Time cefazolin AdvReac Itching Verified 01/13/20 08:43 vancomycin AdvReac Hives Verified 01/13/20 16:45 Home Medications: Ambulatory Orders Acetaminophen [Tylenol -] 1,000 mg PO Q6H #50 tablet 01/16/20 Anemia: No Asthma: No Cancer: No Cardiac Disorders: No CVA: No COPD: No CHF: No Dementia: No Diabetes: No GI Disorders: No Disorders: No HTN: No Hypercholesterolemia: No Liver Disease: No Seizures: No Thyroid Disease: No - Surgical History Abdominal Surgery: No Appendectomy: No Cardiac Surgery: No Cholecystectomy: No Lung Surgery: No Neurologic Surgery: No Orthopedic Surgery: No - Immunization History Immunization Up to Date: Yes - Psycho-Social/Smoking History Smoking History: Never smoked Have you smoked in the past 12 months: No Information on smoking cessation initiated: No - Substance Abuse Hx (Audit-C & DAST Scrn) How often the patient has a drink containing alcohol: Never Score: In Men: 4 or > Positive; In Women: 3 or > Positive: 0 Screen Result (Pos requires Nsg. Audit-10AR): Negative In the last yr the pt used illegal drug/Rx for NonMed reason: No Score: Yes response is considered Positive: 0 Screen Result (Positive result requires Nsg. DAST-10): Negative Review of Systems - Review of Systems Comments:: 01/17/20 00:25 CONSTITUTIONAL: endorses tactile fevers HEENT: endorses band-like headaches. Denies photophobia, changes in hearing, diplopia, blurry vision, sore throat, rhinorrhea RESP: Endorses 2 weeks of episodic SOB CARD: Denies chest pain, palpitations GI: Endorses nausea and nbnb vomiting. Denies abdominal pain, inability to tolerate PO : Denies dysuria NEURO: Denies numbness, tingling, weakness MSK: Denies neck pain SKIN: Denies rashes *Physical Exam - Vital Signs Last Vital Signs Temp Pulse Resp BP Pulse Ox 98.2 F 75 16 151/90 100 01/16/20 08:31 01/16/20 08:31 01/16/20 08:31 01/16/20 08:31 01/16/20 08:31 - Physical Exam 01/17/20 00:25 GEN: Moderately uncomfortable, AAOx3. HEENT: NC/AT, CN II-XII grossly intact, EOMI, PERRL. No facial asymmetry. Moist mucous membranes. Normal voice. Supple neck w/ FROM. CV: S1/S2, RRR, no m/r/g LUNG: CTAB, no wheezes, crackles, rales, rhonchi. GI: Soft, ndnt, +BS, no guarding, no rebound. No masses. MSK: No obvious deformities of all extremities. SKIN: Warm, dry, no rashes appreciated. PSYCH: Odd affect NEURO: Moving all extremities well. Ambulates w/ normal gait. 5/5 strength UE and LE b/l. ED Treatment Course - LABORATORY CBC & Chemistry Diagram: 01/16/20 11:05 01/16/20 11:05 Medical Decision Making - Medical Decision Making 01/17/20 00:25 44F revisit for persistent band-like headache x 3 days w/ interval nausea and vomiting. h/o URI sx. Neuro intact exam. DDX - tension headache, viral illness; unlikely ICH, meningitis. Less likely st ructural abnormality. - cbc, cmp - cxr - CT head - tylenol, reglan, benadryl, fluids 01/16/20 12:11 labs reviewed, CT head negative results discussed with patient who is feeling much better s/p tx dc home w/ pcp f/u; rx; and RTP Discharge - Discharge Information Problems reviewed: Yes Clinical Impression/Diagnosis: Headache Qualifiers: Headache type: tension-type Headache chronicity pattern: acute headache Intractability: not intractable Qualified Code(s): G44.209 - Tension-type headache, unspecified, not intractable Condition: Stable Disposition: HOME - Additional Discharge Information Prescriptions: Acetaminophen [Tylenol -] 1,000 mg PO Q6H #50 tablet - Follow up/Referral - Patient Discharge Instructions Patient Printed Discharge Instructions: DI for Headache Additional Instructions: Take Tylenol 1000mg every 6-8 hours for symptoms. We sent a prescription to your pharmacy. Continue your home medications as prescribed. Follow up with your Primary Care Doctor regarding this ED visit in the next 3-5 days. Speak to your primary care doctor regarding your previous chest x-ray result. Return to the nearest Emergency Department if you experience new or worsening symptoms, including but not limited to: - persistent or worsening headaches - changes in vision or hearing - numbness - fevers - changes in behavior or personality - anything that concerns you ---- [place] Tylenol 1000mg cada 6-8 horas para los sntomas. Enviamos onesimo receta a kendall farmacia. Contine eriberto medicamentos caseros segn lo prescrito. Colette un seguimiento con kendall mdico de atencin primaria con respecto a esta visita al servicio de urgencias en los prximos 3-5 reese. Hable con kendall mdico de atencin primaria sobre kendall resultado de radiografa de trax anterior. Regrese al departamento de emergencias ms cercano si experimenta sntomas nuevos o que empeoran, incluyendo trell no limitado a: - tracie de jaspal persistentes o que empeoran - cambios en la visin o la audicin entumecimiento - fiebres - cambios en el comportamiento o la personalidad - cualquier cosa que te preocupe Print Language: GEORGIAN - Post Discharge Activity
--- NOTE | 2020-01-16 08:54 | PDOC ---
Attending Attestation - Resident Resident Name: Nick Cam - ED Attending Attestation I have performed the following: I have examined & evaluated the patient, The case was reviewed & discussed with the resident, I agree w/resident's findings & plan, Exceptions are as noted Discharge - Discharge Information Clinical Impression/Diagnosis: Headache Qualifiers: Headache type: tension-type Headache chronicity pattern: acute headache Intractability: not intractable Qualified Code(s): G44.209 - Tension-type headache, unspecified, not intractable Condition: Stable - Follow up/Referral - Patient Discharge Instructions - Post Discharge Activity
[2020-01-16] MEDS ORDERED: ACETAMINOPHEN INJECTION 100 ML IVPB ONE ×2 (09:08→09:44)
[2020-01-16] MEDS ORDERED: METOCLOPRAMIDE HCL INJECTION 10 MG/2 ML VIAL ONE ×2 (09:08→09:44)
[2020-01-16 11:16] LABS: BASO % 0.5 % (0-2.0); EOS % 0.4 % (0-4.5); HEMATOCRIT 34.8 % (32.4-45.2); HEMOGLOBIN 11.6 GM/dL (10.7-15.3); LYMPH % 16.1 % (8-40); MCH 29.4 pg (25.7-33.7); MCHC 33.4 g/dl (32.0-36.0); MEAN CELL VOLUME 88.1 fl (80-96); MEAN PLT VOLUME 6.8 fl (7.5-11.1); MONO % 6.8 % (3.8-10.2); NEUT % 76.2 % (42.8-82.8); PLATELET COUNT 341 K/MM3 (134-434); RBC 3.95 M/mm3 (3.60-5.2); RDW 13.8 % (11.6-15.6); WHITE BLOOD COUNT 9.5 K/mm3 (4.0-10.0)
[2020-01-16 11:17] VITALS: BP 113/75; PULSE 61; TEMP 98.6
[2020-01-16 11:56] LABS: ALBUMIN 3.4 g/dl (3.4-5.0); BILIRUBIN,TOTAL 0.3 mg/dL (0.2-1); BLOOD UREA NITROGEN 8.4 mg/dL (7-18); CALCIUM 8.4 mg/dL (8.5-10.1); CREATININE 0.6 mg/dL (0.55-1.3); TOT PROT 6.8 g/dl (6.4-8.2)
--- NOTE | 2020-01-17 10:42 | PDOC ---
Documentation entered by Kya Moncada SCRIBE, acting as scribe for Madelyn Payne MD. Madelyn Payne MD: This documentation has been prepared by the adoreibeCoral Sydney, SCRIBE, under my direction and personally reviewed by me in its entirety. I confirm that the documentation accurately reflects all work, treatment, procedures, and medical decision making performed by me. Attending Attestation - Resident Resident Name: Nick Cam - ED Attending Attestation I have performed the following: I have examined & evaluated the patient, The case was reviewed & discussed with the resident, I agree w/resident's findings & plan, Exceptions are as noted - HPI HPI: 01/16/20 09:56 Patient is a 44 year old female with no significant past medical history who presents to the ED with several days of persistent headache, nausea, and vomiting. As per patient, her headache wraps around her head like a band and notes associated neck soreness, nausea, and NBNB vomiting (last episode 40 minutes ago). Patient reported to the ED last Thursday with similar symptoms and returned today for worsening symptoms. Regarding the headache, she notes it was not sudden onset, it is similar to prior headaches in her life, it improves with medication, no n/t/w focally, no dizziness/lightheadedness, no vision changes, no speaking/swallowing issues, no other red flags. Denies fever, chills, or diarrhea. Denies hematuria, and dysuria. Denies any other symptoms. Allergies: Cefazolin, vancomycin - Physicial Exam PE: 01/16/20 10:33 GENERAL: tired but nontoxic-appearing, A/Ox4, no distress, answers questions appropriately, Indonesian speaking, pleasant HEENT: PERRLA, EOMI, moist mucous membranes NECK/BACK: no midline ttp, no spinal stepoff or deformity, no hematoma, full ROM, neck supple CARDIOVASCULAR: regular rate/rhythm, no MGR, strong peripheral pulses, capillary refill <2 seconds, extremities wwp, no edema LUNGS/RESPIRATORY: no respiratory distress, CTAB GI/ABDOMEN: symmetric ifcx-pz-sapx, normoactive BS, soft, no ttp, no midline pulsatile masses : no CVA tenderness MSK/EXTREMITIES: no muscle atrophy, no acute deformity SKIN: warm and dry, no pallor, no jaundice, no rash, no pathologic-appearing bruising, no skin breakdown, no cuts, no lesions NEUROLOGICAL: GCS 15, CN II-XII grossly intact, 5/5 strength proximally and distally, no facial droop - Medical Decision Making 01/16/20 10:37 44YOF who p/w 5 days all-over headache and generalized non-midline neck soreness without stiffness. Had LP on first visit here to the ED on Thursday which was n egative for e/o meningitis or e/o xanthochromia. Initial Vital Signs Temp Pulse Resp BP Pulse Ox 98.2 F 75 16 151/90 100 01/16/20 08:31 01/16/20 08:31 01/16/20 08:31 01/16/20 08:31 01/16/20 08:31 DDX includes but not limited to viral URI/viral syndrome, tension headache, migraine, unlikely to be meningitis or ICH given lack of sudden onset or other red flag symptoms, and given the normal LP results from 3 days ago. Will do labs and HCT, treat symptoms, then re-assess and decide dispo. Laboratory Tests 01/16/20 01/16/20 11:05 11:05 WBC 9.5 RBC 3.95 Hgb 11.6 Hct 34.8 MCV 88.1 MCH 29.4 MCHC 33.4 RDW 13.8 Plt Count 341 MPV 6.8 L Absolute Neuts (auto) 7.2 Neutrophils % 76.2 Lymphocytes % 16.1 D Monocytes % 6.8 Eosinophils % 0.4 D Basophils % 0.5 D Nucleated RBC % 0 Sodium 141 Potassium 4.0 Chloride 110 H Carbon Dioxide 23 Anion Gap 8 BUN 8.4 Creatinine 0.6 Est GFR (CKD-EPI)AfAm 127.58 Est GFR (CKD-EPI)NonAf 110.08 Random Glucose 95 Calcium 8.4 L Total Bilirubin 0.3 AST 11 L ALT 18 Alkaline Phosphatase 61 Total Protein 6.8 Albumin 3.4 HCT: Nothing acute CXR: Nothing acute Patient states much improved headache, she is comfortable going home. Most likely viral syndrome with expected discomfort as normal course of illness. She is walking and speaking normally, repeat exam benign. Return precautions discussed. Discharge - Discharge Information Problems reviewed: Yes Clinical Impression/Diagnosis: Headache Qualifiers: Headache type: tension-type Headache chronicity pattern: acute headache Intractability: not intractable Qualified Code(s): G44.209 - Tension-type he adache, unspecified, not intractable Condition: Stable Disposition: HOME - Additional Discharge Information Prescriptions: Acetaminophen [Tylenol -] 1,000 mg PO Q6H #50 tablet - Follow up/Referral - Patient Discharge Instructions Patient Printed Discharge Instructions: DI for Headache Additional Instructions: Take Tylenol 1000mg every 6-8 hours for symptoms. We sent a prescription to your pharmacy. Continue your home medications as prescribed. Follow up with your Primary Care Doctor regarding this ED visit in the next 3-5 days. Speak to your primary care doctor regarding your previous chest x-ray result. Return to the nearest Emergency Department if you experience new or worsening symptoms, including but not limited to: - persistent or worsening headaches - changes in vision or hearing - numbness - fevers - changes in behavior or personality - anything that concerns you ---- [place] Tylenol 1000mg cada 6-8 horas para los sntomas. Enviamos onesimo receta a kendall farmacia. Contine eriberto medicamentos caseros segn lo prescrito. Colette un seguimiento con kendall mdico de atencin primaria con respecto a esta visita al servicio de urgencias en los prximos 3-5 reese. Hable con kendall mdico de atencin primaria sobre kendall resultado de radiografa de trax anterior. Regrese al departamento de emergencias ms cercano si experimenta sntomas nuevos o que empeoran, incluyendo trell no limitado a: - tracie de jaspal persistentes o que empeoran - cambios en la visin o la audicin entumecimiento - fiebres - cambios en el comportamiento o la personalidad - cualquier cosa que te preocupe Print Language: PERSIAN - Post Discharge Activity
== END 2020-01-16 12:34 | disposition home or self-care (01) ==
LOC: JER 08:21
PROC: 3E0333Z Introduction of Anti-inflammatory into Peripheral Vein, Percutaneous Approach (ICD-10-PCS; principal; 2020-01-16)
PROC: 3E0337Z Introduction of Electrolytic and Water Balance Substance into Peripheral Vein, Percutaneous Approach (ICD-10-PCS; principal; 2020-01-16)
DX: G44.209 Tension-type headache, unspecified, not intractable (principal)
CPT/HCPCS: 36415; 70450-TC; 71045-TC-FY; 80053; 85025; 96374; 99285-25; J0131

== ENCOUNTER 2020-02-29 10:57 | Inpatient (IN) | payer OTHER ==
[2020-02-29] MEDS ORDERED: ACETAMINOPHEN INJECTION 100 ML IVPB ONE ×2 (11:25→20:03)
[2020-02-29] MEDS ORDERED: SODIUM CHLORIDE 2,014 ML IV ONE (11:42)
[2020-02-29] MEDS ORDERED: ONDANSETRON 4 MG/2 ML VIAL IVPUSH ONE (11:43)
[2020-02-29] MEDS ORDERED: FAMOTIDINE 20 MG/50 ML IVPB 20 MG/50 ML MG IVPB ONE ×2 (11:44→12:14)
[2020-02-29 11:59] LABS: BASO % 0.2 % (0-2.0); HEMATOCRIT 37.2 % (32.4-45.2); HEMOGLOBIN 12.2 GM/dL (10.7-15.3); LYMPH % 4.5 % (8-40); MCH 28.4 pg (25.7-33.7); MCHC 32.9 g/dl (32.0-36.0); MEAN CELL VOLUME 86.4 fl (80-96); NEUT % 90.3 % (42.8-82.8); PLATELET COUNT 330 K/MM3 (134-434); RDW 13.8 % (11.6-15.6); WHITE BLOOD COUNT 19.8 K/mm3 (4.0-10.0)
[2020-02-29 12:19] LABS: ALBUMIN 4.2 g/dl (3.4-5.0); ALK PHOS 81 U/L (45-117); ANION GAP 14 MMOL/L (8-16); BILIRUBIN,TOTAL 0.6 mg/dL (0.2-1); BLOOD UREA NITROGEN 10.8 mg/dL (7-18); CALCIUM 8.7 mg/dL (8.5-10.1); CHLORIDE 104 mmol/L (98-107); CO2 19 mmol/L (21-32); CREATININE 0.8 mg/dL (0.55-1.3); GLUCOSE,RANDOM 100 mg/dL (74-106); POTASSIUM 3.4 mmol/L (3.5-5.1); SGOT/AST 19 U/L (15-37); SGPT/ALT 22 U/L (13-61); SODIUM 136 mmol/L (136-145)
[2020-02-29] MEDS ORDERED: ACETAMINOPHEN 1000 MG/100 ML VIAL (NON FORMULARY) IVPB ONE (12:34)
--- NOTE | 2020-02-29 14:04 | PDOC ---
Documentation entered by Janeth Shea SCRIBE, acting as scribe for Delphine Lozano MD. Delphine Lozano MD: This documentation has been prepared by the Shabbir masterson Brenda, SCRIBE, under my direction and personally reviewed by me in its entirety. I confirm that the documentation accurately reflects all work, treatment, procedures, and medical decision making performed by me. History of Present Illness - General Chief Complaint: Pain Stated Complaint: ABD/ FEVER Time Seen by Provider: 02/29/20 11:26 History Source: Patient Exam Limitations: No Limitations - History of Present Illness Initial Comments: 02/29/20 11:57 44 YOF with a significant PMH of Kidney stones who presents to the ED for evaluation of 4 days of abdominal pain and 1 day of subjective fevers, chills and body aches, productive sputum/cough. Patient is also endorsing nausea and NBNB vomiting today, with one episode in the ED. She reports being in this ED 08/2019 for evaluation of a migraines previously and was told she had kidney stones as well. She is also endorsing headache and lower left back pain. Reports taking 2 of mylanta this morning without relief.. Denies chest pain, SOB, palpitation, dizziness, weakness, D, bladder and bowel problems, leg swelling, No sick contacts or travel. No new changes in medications. Allergies: ancef, vancomycin Social history: Lives with family. No tobacco, ETOH or drug use. Meds: as documented in EMR PMD: 2 Dr Karl Woods 02/29/20 15:43 02/29/20 15:54 02/29/20 15:56 03/01/20 07:35 Past History - Medical History Allergies/Adverse Reactions: Allergies Allergy/AdvReac Type Severity Reaction Status Date / Time cefazolin AdvReac Itching Verified 02/29/20 11:11 vancomycin AdvReac Hives Verified 02/29/20 11:11 Home Medications: Ambulatory Orders Acetaminophen [Tylenol -] 1,000 mg PO Q6H #50 tablet 01/16/20 Anemia: No Asthma: No Cancer: No Cardiac Disorders: No CVA: No COPD: No CHF: No Dementia: No Diabetes: No GI Disorders: No Disorders: No HTN: No Hypercholesterolemia: No Liver Disease: No Seizures: No Thyroid Disease: No - Surgical History Abdominal Surgery: No Appendectomy: No Cardiac Surgery: No Cholecystectomy: No Lung Surgery: No Neurologic Surgery: No Orthopedic Surgery: No - Reproductive History Is Patient Now?: No - Immunization History Immunization Up to Date: Yes - Psycho-Social/Smoking History Smoking History: Never smoked Have you smoked in the past 12 months: No - Substance Abuse Hx (Audit-C & DAST Scrn) How often the patient has a drink containing alcohol: Never Score: In Men: 4 or > Positive; In Women: 3 or > Positive: 0 Screen Result (Pos requires Nsg. Audit-10AR): Negative Review of Systems - Review of Systems Able to Perform ROS?: Yes Comments:: 02/29/20 12:04 Constitutional: +fevers and chills. +malaise HEENT: No headache or dizziness. No congestion. CVS: no chest pain or syncope. Resp: no sob. +productive cough. Gastrointestinal: (+) Abdominal pain (+) vomiting (+) Nausea. Genitourinary: no urinary sx, hematuria. MUSCULOSKELETAL: (+) Back pain. +myalgias. No joint pain and swelling. No neck pain. SKIN: no redness or skin changes, no discharge, no rash. No wounds. Hematologic: no easy bruising/bleeding. NEUROLOGIC: No headache or dizziness, LOC or altered mental status. No weakness, numbness or tingling. Psych: no anxiety or depression Allergic/Immunologic: +medication allergies All other systems reviewed and negative, or as documented in HPI. 02/29/20 15:56 03/01/20 07:35 03/01/20 07:36 *Physical Exam - Vital Signs Last Vital Signs Temp Pulse Resp BP Pulse Ox 100.6 F H 111 H 18 114/79 100 02/29/20 11:07 02/29/20 11:07 02/29/20 11:07 02/29/20 11:07 02/29/20 11:07 - Physical Exam 02/29/20 12:07 General: (+) Moderate acute distress due to wretching. Well appearing, awake and alert. Neck: neck supple, FROM Resp: CTAB, normal and even respirations, no respiratory distress CVS: RRR, no murmurs, 2+ peripheral pulses throughout, no peripheral edema Abdomen: (+) Left lower quadrant tenderness to palpation (+) Left CVA tenderness. soft, ND, no rebound or guarding. Back: normal inspection and ROM] MSK: no edema, HERNANDEZ x4, ROM intact. No clubbing or cyanosis. normal bulk and tone. Extremities: no calf tenderness Neuro: alert, oriented appropriately; no focal neurologic deficits Skin: warm and well perfused, cap refill <2 sec, normal color Heart Score/ECG Review #1 ECG reviewed & interpreted by me at: 12:10 General ECG Interpretation: Sinus Rhythm, Normal Rate, Normal Intervals 02/29/20 14:03 EKG normal sinus rhythm 96 bpm, no interval abnormalities, narrow QRS, ST and T wave segments and morphology normal. Nonspecific T wave abnormalities ED Treatment Course - LABORATORY CBC & Chemistry Diagram: 02/29/20 11:42 02/29/20 11:36 Medical Decision Making - Medical Decision Making 02/29/20 14:03 Vital Signs Temp Pulse Resp BP Pulse Ox 100.6 F H 94 H 19 134/70 99 02/29/20 11:07 02/29/20 12:30 02/29/20 12:30 02/29/20 12:30 02/29/20 12:30 vitals reviewed, +febrile tachycardia normotensive, no respiratory distress normal sats. DDx abdominal pain: Renal colic, biliary colic, metabolic/electrolyte derangements. GERD, PUD, esophageal spasm, pancreatitis, hepatitis, constipation, colitis, gastroenteritis, cholecystitis, UTI, pyelonephritis, ileus, SBO, medication side effect, hernia, appendicitis, diverticulitis, m esenteric ischemia. msk strain, mesenteric adenitis, psoas abscess. Given medications tylenol/zofran, 2L IVF with clinical improvement. labs and lytes with sig leukocytosis of 19K lytes wnl, normal Cr lactic acidosis noted, early sepsis/severe sepsis. not in shock. CT stone study given concern for septic stone vs other intra abdominal pathology 02/29/20 14:11 CT abdomen pelvis spiral study with stable 2 mm calcified stone in the lower pole of the left kidney unchanged from previous exam. There is no hydronephrosis or perinephric fluid, no stones visualized. No free air or free fluid in the abdomen, no signs of colitis or diverticulitis no inflammatory changes in the abdomen pelvis noted. There is a small right renal cyst noted incidentally. UA is neg for infection, f/u urine culture and blood cultures repeat lactic is normal 02/29/20 14:12 continues to have fevers, Tmax 101. unclear origin zosyn to empirically cover pt has allergies to cefazolin and vancomycin, has tolerated pcn before without anaphylaxis or reactions could be viral syndrome, as pt has endorsed cough with the fever f/u blood cultures covid 19 test pending admit to [facility], Dr Quarles, medical management, further workup warranted. 02/29/20 15:55 02/29/20 15:57 02/29/20 15:58 02/29/20 16:15 03/01/20 07:37 Discharge - Discharge Information Problems reviewed: Yes Clinical Impression/Diagnosis: Fever, Viral syndrome, Abdominal pain Condition: Guarded - Admission Yes - Follow up/Referral - Patient Discharge Instructions - Post Discharge Activity
[2020-02-29] MEDS ORDERED: SODIUM CHLORIDE 0.9% 500 ML INFUS.BAG IV ONE (14:39)
[2020-02-29] MEDS ORDERED: KETOROLAC TROMETHAMINE 15 MG/ML VIAL IVPUSH ONE (14:39)
[2020-02-29] MEDS ORDERED: KETOROLAC TROMETHAMINE 15 MG/ML VIAL ONE (14:42)
[2020-02-29 14:44] LABS: PH,URINE 6.5 (5.0-8.0); URINE APPEARANCE CLEAR; URINE BILIRUBIN NEGATIVE (NEGATIVE); URINE COLOR YELLOW; URINE GLUCOSE (UA) NEGATIVE (NEGATIVE); URINE KETONE NEGATIVE (NEGATIVE); URINE LEUK ESTERASE NEGATIVE (NEGATIVE); URINE NITRITE NEGATIVE (NEGATIVE); URINE PROTEIN NEGATIVE (NEGATIVE); URINE UROBILINOGEN 0.2 mg/dL (0.2-1.0)
[2020-02-29] MEDS ORDERED: PIPERACILLIN/TAZOB 4.5 GM 4.5 GM in DEXTROSE 5%-WATER 100 ML IVPB ONE (15:43)
[2020-02-29] MEDS ORDERED: PIPERACILLIN/TAZOB 4.5 GM 4.5 GM/100 ML BAG IVPB ONE (15:52)
--- NOTE | 2020-02-29 16:04 | EKG ---
Test Reason : Blood Pressure : / mmHG Vent. Rate : 096 BPM Atrial Rate : 096 BPM P-R Int : 156 ms QRS Dur : 088 ms QT Int : 560 ms P-R-T Axes : 056 011 029 degrees QTc Int : 707 ms NORMAL SINUS RHYTHM NONSPECIFIC T WAVE ABNORMALITY PROLONGED QT ABNORMAL ECG WHEN COMPARED WITH ECG OF 13-JAN-2020 08:49, NONSPECIFIC T WAVE ABNORMALITY, WORSE IN ANTERIOR LEADS QT HAS LENGTHENED Confirmed by MD Tommy, Trey ([id number]) on 02/29/2020 4:04:31 PM Referred By: Confirmed By:Trey Sanders MD
[2020-02-29] MEDS ORDERED: ACETAMINOPHEN 1000 MG/100 ML VIAL (NON FORMULARY) IVPB PRN (18:06)
--- NOTE | 2020-02-29 18:09 | HP ---
CHIEF COMPLAINT: PCP: HISTORY OF PRESENT ILLNESS: 44yo F with only history of nephrolithiasis who presents today due to ongoing fevers that she noted at home. She reports that she developed fevers today alongside of diffuse lower quadrant abdominal pain. The pain is waxing and waning, but is relatively sharp and will move across the quadrants when it radiates. She reports that she developed her abdominal pain suddenly and did not eat any food out of the ordinary. In addition, she has developed a productive cough with white sputum without blood. Otherwise patient denies any vomiting or nausea at this time. She has no sick contacts and she has not travelled. She denies any SOB, CP, palpitatons, numbness, weakness, lightheadedness, dizziness, rhinorrhea, ear pain, dysuria, polyuria, hematuria. She has not had a BM within 24hrs however this is not unusual for her. PMHx: Nephrolithiasis PSHx: None SoHX: No tobacco, alcohol or illicit substances FamHx: Noncontributory Allergies cefazolin Adverse Reaction (Verified 02/29/20 11:11) Itching ITCHING/URTICARIA vancomycin Adverse Reaction (Verified 02/29/20 11:11) Hives HOME MEDICATIONS: Home Medications Medication Instructions Recorded Acetaminophen [Tylenol -] 1,000 mg PO Q6H #50 tablet 01/16/20 REVIEW OF SYSTEMS As per [facility] PHYSICAL EXAMINATION Vital Signs - 24 hr 02/29/20 02/29/20 02/29/20 11:07 12:30 14:33 Temperature 100.6 F H 101.1 F H Pulse Rate 111 H Pulse Rate [ 94 H 84 Right] Respiratory 18 19 18 Rate Blood Pressure 114/79 Blood Pressure 134/70 110/59 L [Right Arm] O2 Sat by Pulse 100 99 99 Oximetry (%) 02/29/20 16:57 Temperature 100.5 F H Pulse Rate Pulse Rate [ 86 Right] Respiratory 19 Rate Blood Pressure Blood Pressure 100/60 [Right Arm] O2 Sat by Pulse 98 Oximetry (%) GENERAL: Awake, alert, and fully oriented, in no acute distress. HEENT: NC/At, JULIO CÉSAR, EOMI, no conjunctival discharge, no posterior oropharynx exudates/erythema, no TTP of the sinuses, MMM NECK: No JVD, no lymphadenopathy LUNGS: CTA bilaterally. No wheezes, and no crackles. No accessory muscle use. HEART: RRR, normal S1 and S2 without murmur ABDOMEN: Soft, nondistendend, TTP in b/l lower quadrants, no guarding, no rebound, no masses. MUSCULOSKELETAL: No CVA tenderness. EXTREMITIES: 2+ pulses, No calf tenderness. No peripheral edema. NEURO: No focal deficits. PSYCHIATRIC: Cooperative. Good eye contact. Appropriate mood and affect. SKIN: Warm, dry, no rashes or lesions noted, normal capillary refill. Laboratory Results - last 24 hr 02/29/20 02/29/20 02/29/20 11:36 11:36 11:36 WBC RBC Hgb Hct MCV MCH MCHC RDW Plt Count MPV Absolute Neuts (auto) Neutrophils % Lymphocytes % Monocytes % Eosinophils % Basophils % Nucleated RBC % Sodium 136 Potassium 3.4 L Chloride 104 Carbon Dioxide 19 L Anion Gap 14 BUN 10.8 Creatinine 0.8 Est GFR (CKD-EPI)AfAm 103.19 Est GFR (CKD-EPI)NonAf 89.04 Random Glucose 100 Lactic Acid 2.7 H* Calcium 8.7 Total Bilirubin 0.6 AST 19 ALT 22 Alkaline Phosphatase 81 Creatine Kinase 84 Troponin I < 0.02 Total Protein 8.0 Albumin 4.2 Serum , Qual Negative Urine Color Urine Appearance Urine pH Ur Specific [place] Urine Protein Urine Glucose (UA) Urine Ketones Urine Blood Urine Nitrite Urine Bilirubin Urine Urobilinogen Ur Leukocyte Esterase 02/29/20 02/29/20 02/29/20 11:42 14:14 14:25 WBC 19.8 H RBC 4.30 Hgb 12.2 Hct 37.2 MCV 86.4 MCH 28.4 MCHC 32.9 RDW 13.8 Plt Count 330 MPV 7.0 L Absolute Neuts (auto) 17.9 H Neutrophils % 90.3 H Lymphocytes % 4.5 L D Monocytes % 5.0 Eosinophils % 0.0 D Basophils % 0.2 Nucleated RBC % 0 Sodium Potassium Chloride Carbon Dioxide Anion Gap BUN Creatinine Est GFR (CKD-EPI)AfAm Est GFR (CKD-EPI)NonAf Random Glucose Lactic Acid 1.6 Calcium Total Bilirubin AST ALT Alkaline Phosphatase Creatine Kinase Troponin I Total Protein Albumin Serum , Qual Urine Color Yellow Urine Appearance Clear Urine pH 6.5 D Ur Specific [place] 1.011 Urine Protein Negative Urine Glucose (UA) Negative Urine Ketones Negative Urine Blood Negative Urine Nitrite Negative Urine Bilirubin Negative Urine Urobilinogen 0.2 Ur Leukocyte Esterase Negative ASSESSMENT/PLAN: Fever of Unknown Origin Abdominal Pain with unclear etiology Lactic Acidosis, resolved Hypokalemia --? Viral vs. insidious infection --CT A/P noncontrast reviewed --> no acute pathology; no signs of constipation --Given ongoing fevers with patient's symptom of increased white sputum production: CT Chest noncontrast ordered --Respiratory viral pcr ordered --Rapid influenza ordered --Covid-19 PCR pending --HIV 4th gen ordered --ESR, CRP ordered --Left shift leukocytosis noted on CBC --RF and KHARI ordered for AM --NPO except meds for bowel rest given abd pain --Tylenol and Morphine available PRN --IVF hydration to continue given sepsis with unclear source --Coverage with broad-spectrum antibiotics to continue --ID consulted --Hypokalemia repleted with Kdur PPX: DVT - Lovenox SQ Dispo: Med-surg admit Castro Quarles DO - IM Family Medical History Family History: As Documented Visit type - Emergency Visit Emergency Visit: Yes ED Registration Date: 02/29/20 Care time: The patient presented to the Emergency Department on the above date and was hospitalized for further evaluation of their emergent condition. - New Patient This patient is new to me today: Yes Date on this admission: 02/29/20 - Critical Care Critical Care patient: No
[2020-02-29] MEDS ORDERED: SODIUM CHLORIDE 1,000 ML IV SCH (18:15)
[2020-02-29] MEDS ORDERED: MORPHINE SULFATE 2 MG/ML VIAL ONE (19:56)
[2020-02-29] MEDS: MORPHINE SULFATE 2 MG/ML VIAL IVPUSH PRN (19:58)
[2020-02-29 23:28] VITALS: BMI 27.4
[2020-03-01] MEDS ORDERED: PIPERACILLIN/TAZOB 3.375 GM 3.375 GM in DEXTROSE 5%-WATER - 50 ML IVPB SCH (02:00)
[2020-03-01] MEDS ORDERED: PIPERACILLIN/TAZOBACTAM 3.375 GM VIAL IVPB ONE ×3 (03:22→17:51)
[2020-03-01] MEDS ORDERED: DEXTROSE 5%-WATER - 50 ML IVPB ONE ×3 (03:24→17:51)
[2020-03-01] MEDS: PIPERACILLIN/TAZOB 3.375 GM 3.375 GM in DEXTROSE 5%-WATER - 50 ML IVPB SCH ×3 (03:26→17:52)
[2020-03-01 08:55] LABS: BASO % 0.4 % (0-2.0); EOS % 0.1 % (0-4.5); HEMATOCRIT 31.7 % (32.4-45.2); HEMOGLOBIN 10.6 GM/dL (10.7-15.3); LYMPH % 10.1 % (8-40); MCHC 33.4 g/dl (32.0-36.0); MEAN CELL VOLUME 86.7 fl (80-96); MEAN PLT VOLUME 7.2 fl (7.5-11.1); MONO % 7.4 % (3.8-10.2); PLATELET COUNT 264 K/MM3 (134-434); RBC 3.66 M/mm3 (3.60-5.2); RDW 14.2 % (11.6-15.6); WHITE BLOOD COUNT 14.7 K/mm3 (4.0-10.0)
[2020-03-01 09:27] LABS: BILIRUBIN,TOTAL 0.9 mg/dL (0.2-1); BLOOD UREA NITROGEN 6.7 mg/dL (7-18); CALCIUM 8.1 mg/dL (8.5-10.1); CREATININE 0.6 mg/dL (0.55-1.3); POTASSIUM 3.4 mmol/L (3.5-5.1); TOT PROT 6.1 g/dl (6.4-8.2)
[2020-03-01] MEDS ORDERED: MAGNESIUM SULF 50% (8.12 MEQ/2 ML-1 GM VIAL) IVPB ONE (10:00)
[2020-03-01] MEDS ORDERED: DOCUSATE SODIUM 100 MG CAPSULE (FP) PO PRN (10:01)
[2020-03-01] MEDS: ENOXAPARIN NA (PORCINE) 40 MG/0.4 ML DISP.SYRIN SQ SCH (10:07)
[2020-03-01] MEDS: MORPHINE SULFATE 2 MG/ML VIAL IVPUSH PRN ×2 (10:07→19:57)
[2020-03-01] MEDS ORDERED: ALBUTEROL SO4 HFA INHALER IH PRN (10:15)
[2020-03-01] MEDS ORDERED: MAGNESIUM 1GM/D5W - 1 GM/100 ML IVPB IVPB ONE (10:15)
--- NOTE | 2020-03-01 12:44 | CON.ID ---
Consult Consult Specialty:: infectious diseases Referred by:: Reason for Consultation:: fever, bacteremia - History of Present Illness Chief Complaint: fever,abd pain History of Present Illness: 44yo F with history of nephrolithiasis came due to ongoing fevers that she noted at home. She reports that she developed fevers alongside of diffuse lower quadrant abdominal pain. . She reports that she developed her abdominal pain suddenly and did not eat any food out of the ordinary. In addition, she has developed a productive cough with white sputum denies any vomiting or nausea at this time. She has no sick contacts and she has not travelled. She denies any SOB, CP, palpitatons, numbness, weakness, lightheadedness, dizziness, rhinorrhea, ear pain, dysuria, polyuria, hematuria. She has not had a BM within 24hrs however this is not unusual for her. mentions that her pain is now suprapubic - History Source History Provided By: Patient, Medical Record Limitations to Obtaining History: Language Barrier - Past Medical History ...LMP: 02/26/20 ...: No Additional Medical History: denies - Past Surgical History Past Surgical History: Yes: Tubal Ligation (laparoscopic) - Alcohol/Substance Use Hx Alcohol Use: No History of Substance Use: reports: None - Smoking History Smoking history: Never smoked Have you smoked in the past 12 months: No - Social History ADL: Independent Home Medications - Allergies Allergies/Adverse Reactions: Allergies Allergy/AdvReac Type Severity Reaction Status Date / Time cefazolin AdvReac Itching Verified 02/29/20 11:11 vancomycin AdvReac Hives Verified 02/29/20 11:11 - Home Medications Home Medications: Ambulatory Orders Acetaminophen [Tylenol -] 1,000 mg PO Q6H #50 tablet 01/16/20 Review of Systems - Review of Systems Constitutional: reports: Fever, Weakness Eyes: reports: No Symptoms HENT: reports: No Symptoms Neck: reports: No Symptoms Cardiovascular: reports: No Symptoms Respiratory: reports: No Symptoms Gastrointestinal: reports: No Symptoms Genitourinary: reports: No Symptoms Musculoskeletal: reports: No Symptoms Integumentary: reports: No Symptoms Neurological: reports: No Symptoms Endocrine: reports: No Symptoms Hematology/Lymphatic: reports: No Symptoms Psychiatric: reports: No Symptoms Physical Exam Vital Signs: Vital Signs Temperature 98.9 F 03/01/20 10:00 Pulse Rate 78 03/01/20 10:00 Respiratory Rate 18 03/01/20 10:00 Blood Pressure 107/72 03/01/20 10:00 O2 Sat by Pulse Oximetry (%) 97 03/01/20 10:00 Constitutional: Yes: Calm, Mild Distress Eyes: Yes: Conjunctiva Clear HENT: Yes: Atraumatic, Normocephalic Neck: Yes: Supple, Trachea Midline Cardiovascular: Yes: Regular Rate and Rhythm Respiratory: Yes: Regular, CTA Bilaterally Gastrointestinal: Yes: Normal Bowel Sounds, Soft Renal/: Yes: Other (suprapubic tenderness) Musculoskeletal: Yes: WNL Extremities: Yes: WNL Neurological: Yes: Alert, Oriented Psychiatric: Yes: Alert, Oriented Labs: CBC, BMP 03/01/20 07:58 03/01/20 07:58 Imaging - Results Cat Scan: Report Reviewed, Image Reviewed Assessment/Plan this patient who comes in wiht fever and positive blood cx starting to feel better will continue zosyn plan 1 repeat blood cx 2.continue abx monitor fever await for cx reports on urine rest as per the team
--- NOTE | 2020-03-01 12:58 | ECHO ---
Name: VINI TATUM Exam:Adult Echocardiogram Study Date: 03/01/2020 11:30 AM Age: 44 yrs Reason For Study: r/o infective endocarditis MMode/2D Measurements & Calculations IVSd: 0.92 cm Ao root diam: 2.8 cm LVIDd: 4.4 cm LA dimension: 3.3 cm LVIDs: 2.5 cm LVPWd: 1.4 cm LVPWs: 1.2 cm EDV(Teich): 88.7 ml ESV(Teich): 22.4 ml LVOT diam: 2.1 cm LAV (MOD-bp): 61.0 ml TAPSE: 1.9 cm RV S Adama: 15.9 cm/sec Doppler Measurements & Calculations MV E max adama: 84.4 cm/sec Ao V2 max: 121.3 cm/sec MV A max adama: 67.1 cm/sec Ao max P.9 mmHg MV E/A: 1.3 MELANIE(V,D): 2.4 cm2 MV dec time: 0.21 sec LV V1 max P.0 mmHg MR max adama: 486.5 cm/sec LV V1 max: 86.4 cm/sec MR max P.7 mmHg TR max adama: 180.0 cm/sec PA V2 max: 93.7 cm/sec TR max P.2 mmHg PA max P.5 mmHg PI end-d adama: 108.6 cm/sec Med Peak E' Adama: 9.5 cm/sec Med E/e': 8.8 Lat Peak E' Adama: 10.2 cm/sec Lat E/e': 8.3 Procedure A complete two-dimensional transthoracic echocardiogram was performed (2D, M-mode, Doppler and color flow Doppler). Left Ventricle The left ventricular size, thickness and function are normal. Ejection Fraction = 60-65%. The left ve ntricular wall motion is normal. Right Ventricle The right ventricle is normal in size and function. Atria Normal left and right atrial size and function. Mitral Valve There is mild mitral regurgitation. Tricuspid Valve There is trace tricuspid regurgitation. Right ventricular systolic pressure is normal. Aortic Valve No hemodynamically significant valvular aortic stenosis. No aortic regurgitation is present. Pulmonic Valve There is no pulmonic valvular regurgitation. Great Vessels The aortic root is normal size. Pericardium/Pleura There is no pericardial effusion. Interpretation Summary The left ventricular size, thickness and function are normal The right ventricle is normal in size and function. There is mild mitral regurgitation. There is trace tricuspid regurgitation. MD Chao Higgins 03/01/2020 12:57 PM
[2020-03-01] MEDS ORDERED: ACETAMINOPHEN 1000 MG/100 ML VIAL (NON FORMULARY) IVPB PRN (13:05)
[2020-03-01] MEDS: KCL 10 MEQ IVPB 10 MEQ/100 ML INFUS.BAG IVPB SCH ×3 (13:31→16:28)
--- NOTE | 2020-03-01 17:00 | PN ---
Physical Exam: SUBJECTIVE: Patient seen and examined. Pt. endorses having a headache around her posteroir cervical neck bilaterally. Pt. also endorses diaphoresis overnight. Pt. noted to have temp to 101.8 OBJECTIVE: Vital Signs Period Temp Pulse Resp BP Sys/[place] Pulse Ox Last 24 Hr 98.9 F-101.8 F 73-88 18-20 107-123/66-72 95-98 GENERAL: The patient is awake, alert, and fully oriented, in no acute distress. HEAD: Normal with no signs of trauma. EYES: PERRL, extraocular movements intact, sclera anicteric, conjunctiva clear. No ptosis. ENT: Ears normal, nares patent, oropharynx clear without exudates, moist mucous membranes. NECK: Trachea midline, full range of motion, supple. LUNGS: Breath sounds equal, clear to auscultation bilaterally, no wheezes, no crackles, no accessory muscle use. HEART: Regular rate and rhythm, S1, S2 without murmur, rub or gallop. ABDOMEN: Soft, nontender, nondistended, normoactive bowel sounds, no guarding, no rebound, no hepatosplenomegaly, no masses. EXTREMITIES: 2+ pulses, warm, well-perfused, no edema. NEUROLOGICAL: Cranial nerves II through XII grossly intact. Normal speech, gait not observed. PSYCH: Normal mood, normal affect. SKIN: Warm, dry, normal turgor, no rashes or lesions noted Laboratory Results - last 24 hr 02/29/20 03/01/20 03/01/20 11:36 07:58 07:58 WBC 14.7 H RBC 3.66 Hgb 10.6 L Hct 31.7 L MCV 86.7 MCH 29.0 MCHC 33.4 RDW 14.2 Plt Count 264 MPV 7.2 L Absolute Neuts (auto) 12.1 H Neutrophils % 82.0 Lymphocytes % 10.1 D Monocytes % 7.4 Eosinophils % 0.1 D Basophils % 0.4 Nucleated RBC % 0 ESR Sodium 136 Potassium 3.4 L Chloride 104 Carbon Dioxide 19 L Anion Gap 14 BUN 10.8 Creatinine 0.8 Est GFR (CKD-EPI)AfAm 103.19 Est GFR (CKD-EPI)NonAf 89.04 Random Glucose 100 Calcium 8.7 Total Bilirubin 0.6 AST 19 ALT 22 Alkaline Phosphatase 81 Creatine Kinase 84 Troponin I < 0.02 C-Reactive Protein 0.6 H Total Protein 8.0 Albumin 4.2 HIV Ag/Ab Combo Qual Negative 03/01/20 03/01/20 07:58 07:58 WBC RBC Hgb Hct MCV MCH MCHC RDW Plt Count MPV Absolute Neuts (auto) Neutrophils % Lymphocytes % Monocytes % Eosinophils % Basophils % Nucleated RBC % ESR 28 H Sodium 139 Potassium 3.4 L Chloride 109 H Carbon Dioxide 23 Anion Gap 7 L BUN 6.7 L Creatinine 0.6 Est GFR (CKD-EPI)AfAm 127.58 Est GFR (CKD-EPI)NonAf 110.08 Random Glucose 79 Calcium 8.1 L Total Bilirubin 0.9 AST 13 L ALT 17 Alkaline Phosphatase 59 Creatine Kinase Troponin I C-Reactive Protein Total Protein 6.1 L Albumin 3.0 L HIV Ag/Ab Combo Qual Active Medications Generic Name Dose Route Start Last Admin Trade Name Freq PRN Reason Stop Dose Admin Acetaminophen 1,000 mg 03/01/20 13:05 03/01/20 13:30 Ofirmev Injection - IVPB 03/01/20 18:06 1,000 mg Q6H PRN Administration PAIN LEVEL 6-10 Albuterol Sulfate 2 puff 03/01/20 10:15 Ventolin Hfa Inhaler - IH Q6H PRN SHORT OF BREATH/WHEEZING Docusate Sodium 100 mg 03/01/20 10:01 Colace - PO BID PRN CONSTIPATION Enoxaparin Sodium 40 mg 03/01/20 10:00 03/01/20 10:07 Lovenox - SQ 40 mg DAILY ANGELA Administration Piperacillin Sod/Tazobactam 50 mls @ 100 mls/hr 03/01/20 02:00 Sod 3.375 gm/ Dextrose IVPB Q8H-IV ANGELA Protocol Piperacillin Sod/Tazobactam 50 mls @ 100 mls/hr 03/01/20 18:00 Sod 3.375 gm/ Dextrose IVPB Q8H-IV ANGELA Protocol Morphine Sulfate 2 mg 02/29/20 18:53 03/01/20 10:07 Morphine Sulfate IVPUSH 2 mg Q4H PRN Administration PAIN LEVEL 7 - 10 ASSESSMENT/PLAN: Pt. is a 44 y.o. F w/ PMHx. of Nehrolithiasis presents with abdominal pain and fever. Pt. admitted for Gram Positive bacteremia in 2 sets of blood cultures without source of origin. #Fever of Unknown Origin w/Abdominal Pain and Gram positive bacteremia -CT A/P noncontrast reviewed --> no acute pathology; no signs of constipation -Given ongoing fevers with patient's symptom of increased white sputum production--->CT Chest noncontrast shows no acute pathology -f/u Respiratory viral Panel -Rapid influenza ordered -Covid-19 PCR pending -HIV Neg -ESR, CRP ordered -Left shift leukocytosis noted on CBC -RF and KHARI ordered for AM -NPO except meds for bowel rest given abd pain -Tylenol and Morphine available PRN -IVF hydration to continue given sepsis with unclear source -C/w Zosyn -ID consult appreciated -f/u urine Ag for Legionella and Strep Pneumo. -TTE: EF 60-65%, mild MR, trace TR, no valvular vegetations noted. Will consider SANCHEZ if no other sources identified. Pt. does not have heart murmur, therefore very low suspicion #Hypokalemia -Hypokalemia repleted with IV KCL and repleted Magnesium #DVT Ppx. -Lovenox SQ Dispo: Med-surg ATTENDING PHYSICIAN STATEMENT I saw and evaluated the patient. I reviewed the resident's note and discussed the case with the resident. I agree with the resident's findings and plan as documented. SUBJECTIVE: OBJECTIVE: ASSESSMENT AND PLAN:
[2020-03-02] MEDS ORDERED: DEXTROSE 5%-WATER - 50 ML IVPB ONE ×2 (02:04→09:58)
[2020-03-02] MEDS ORDERED: PIPERACILLIN/TAZOBACTAM 3.375 GM VIAL IVPB ONE ×2 (02:04→09:58)
[2020-03-02] MEDS: PIPERACILLIN/TAZOB 3.375 GM 3.375 GM in DEXTROSE 5%-WATER - 50 ML IVPB SCH ×2 (02:37→10:01)
[2020-03-02] MEDS: MORPHINE SULFATE 2 MG/ML VIAL IVPUSH PRN ×3 (03:40→13:54)
--- NOTE | 2020-03-02 09:52 | PN ---
Progress Note, Physician History of Present Illness: patient having headaches - Current Medication List Current Medications: Active Medications Albuterol Sulfate (Ventolin Hfa Inhaler -) 2 puff IH Q6H PRN PRN Reason: SHORT OF BREATH/WHEEZING Docusate Sodium (Colace -) 100 mg PO BID PRN PRN Reason: CONSTIPATION Enoxaparin Sodium (Lovenox -) 40 mg SQ DAILY ANGELA Last Admin: 03/01/20 10:07 Dose: 40 mg Documented by: Piperacillin Sod/Tazobactam (Sod 3.375 gm/ Dextrose) 50 mls @ 100 mls/hr IVPB Q8H-IV ANGELA; Protocol Last Admin: 03/02/20 02:37 Dose: 100 mls/hr Documented by: Morphine Sulfate (Morphine Sulfate) 2 mg IVPUSH Q4H PRN PRN Reason: PAIN LEVEL 7 - 10 Last Admin: 03/02/20 03:40 Dose: 2 mg Documented by: - Objective Vital Signs: Vital Signs Temperature 98.6 F 03/02/20 05:07 Pulse Rate 64 03/02/20 05:07 Respiratory Rate 20 03/02/20 05:07 Blood Pressure 110/65 03/02/20 05:07 O2 Sat by Pulse Oximetry (%) 100 03/02/20 05:07 Constitutional: Yes: Calm, Mild Distress Eyes: Yes: Conjunctiva Clear HENT: Yes: Atraumatic, Normocephalic Neck: Yes: Supple, Trachea Midline Respiratory: Yes: Regular, CTA Bilaterally Gastrointestinal: Yes: Normal Bowel Sounds, Soft Musculoskeletal: Yes: WNL Extremities: Yes: WNL Neurological: Yes: Alert, Oriented Psychiatric: Yes: Alert, Oriented Labs: CBC, BMP 03/01/20 07:58 03/01/20 07:58 Assessment/Plan wbc still high plan 1 repeat blood cx 2.continue abx monitor fever rest as per the team
[2020-03-02] MEDS: ENOXAPARIN NA (PORCINE) 40 MG/0.4 ML DISP.SYRIN SQ SCH (10:01)
[2020-03-02] MEDS ORDERED: FLUCONAZOLE 150 MG TABLET PO ONE (10:04)
[2020-03-02] MEDS ORDERED: PT OWN MED DRAWER 7, Y5N ONE ×2 (12:04→12:39)
[2020-03-02 16:38] LABS: BASO % 0.6 % (0-2.0); HEMATOCRIT 34.6 % (32.4-45.2); HEMOGLOBIN 11.5 GM/dL (10.7-15.3); LYMPH % 27.4 % (8-40); MCH 28.8 pg (25.7-33.7); MCHC 33.1 g/dl (32.0-36.0); MEAN PLT VOLUME 7.2 fl (7.5-11.1); MONO % 13.5 % (3.8-10.2); NEUT % 55.5 % (42.8-82.8); PLATELET COUNT 301 K/MM3 (134-434); RBC 3.98 M/mm3 (3.60-5.2); RDW 13.7 % (11.6-15.6); WHITE BLOOD COUNT 6.7 K/mm3 (4.0-10.0)
[2020-03-02 17:00] LABS: ALBUMIN 3.4 g/dl (3.4-5.0); BILIRUBIN,TOTAL 0.3 mg/dL (0.2-1); BLOOD UREA NITROGEN 6.4 mg/dL (7-18); CALCIUM 8.5 mg/dL (8.5-10.1); CREATININE 0.5 mg/dL (0.55-1.3); MAGNESIUM 2.3 mg/dL (1.8-2.4); POTASSIUM 4.3 mmol/L (3.5-5.1); TOT PROT 7.1 g/dl (6.4-8.2)
--- NOTE | 2020-03-02 17:50 | PN ---
Teaching Attending Note Name of Resident: Nick Ricketts ATTENDING PHYSICIAN STATEMENT I saw and evaluated the patient. I reviewed the resident's note and discussed the case with the resident. I agree with the resident's findings and plan as documented. 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 OBJECTIVE: GENERAL: Awake, alert, and fully oriented, in no acute distress. HEENT: NC/At, JULIO CÉSAR, EOMI, no conjunctival discharge, no posterior oropharynx exudates/erythema, no TTP of the sinuses, MMM NECK: No JVD, no lymphadenopathy LUNGS: CTA bilaterally. No wheezes, and no crackles. No accessory muscle use. HEART: RRR, normal S1 and S2 without murmur ABDOMEN: Soft, nondistendend, TTP in b/l lower quadrants, no guarding, no rebound, no masses. MUSCULOSKELETAL: No CVA tenderness. EXTREMITIES: 2+ pulses, No calf tenderness. No peripheral edema. NEURO: No focal deficits. PSYCHIATRIC: Cooperative. Good eye contact. Appropriate mood and affect. SKIN: Warm, dry, no rashes or lesions noted, normal capillary refill. Vital Signs (72 hours) 02/29/20 02/29/20 02/29/20 11:07 12:30 14:33 Temperature 100.6 F H 101.1 F H Pulse Rate 111 H Pulse Rate [ 94 H 84 Right] Respiratory 18 19 18 Rate Blood Pressure 114/79 Blood Pressure 134/70 110/59 L [Right Arm] O2 Sat by Pulse 100 99 99 Oximetry (%) 02/29/20 02/29/20 02/29/20 16:57 20:10 20:44 Temperature 100.5 F H 101.8 F H 99.8 F H Pulse Rate 88 Pulse Rate [ 86 87 Right] Respiratory 19 18 18 Rate Blood Pressure 118/66 Blood Pressure 100/60 112/72 [Right Arm] O2 Sat by Pulse 98 98 95 Oximetry (%) 02/29/20 02/29/20 03/01/20 21:00 22:00 05:00 Temperature 99.8 F H 99.9 F H Pulse Rate 88 82 Pulse Rate [ Right] Respiratory 18 20 Rate Blood Pressure 118/66 114/69 Blood Pressure [Right Arm] O2 Sat by Pulse 95 95 97 Oximetry (%) 03/01/20 03/01/20 03/01/20 10:00 14:35 18:00 Temperature 98.9 F 99.3 F Pulse Rate 78 73 Pulse Rate [ Right] Respiratory 18 18 Rate Blood Pressure 107/72 123/68 Blood Pressure [Right Arm] O2 Sat by Pulse 97 97 96 Oximetry (%) 03/01/20 03/01/20 03/02/20 21:00 22:00 02:00 Temperature 98.7 F Pulse Rate 66 Pulse Rate [ Right] Respiratory 20 20 20 Rate Blood Pressure 114/76 Blood Pressure [Right Arm] O2 Sat by Pulse 96 96 100 Oximetry (%) 03/02/20 03/02/20 05:07 10:00 Temperature 98.6 F 98.6 F Pulse Rate 64 70 Pulse Rate [ Right] Respiratory 20 20 Rate Blood Pressure 110/65 106/68 Blood Pressure [Right Arm] O2 Sat by Pulse 100 95 Oximetry (%) Microbiology 03/01/20 13:30 Urine For Antigen Detection Legionella Antigen - Final 03/01/20 13:30 Urine For Antigen Detection Streptococcus pneumoniae Antigen (M - Final 02/29/20 12:00 Blood - Peripheral Venous Blood Culture - Final Bacillus Species 02/29/20 12:05 Blood - Peripheral Venous Blood Culture - Final Bacillus Species, Not Antracis 02/29/20 14:25 Urine - Urine Clean Catch Urine Culture - Final Normal Urogenital [place] [facility] Tests 02/29/20 02/29/20 02/29/20 11:36 11:36 11:36 WBC RBC Hgb Hct MCV MCH MCHC RDW Plt Count MPV Absolute Neuts (auto) Neutrophils % Lymphocytes % Monocytes % Eosinophils % Basophils % Nucleated RBC % ESR Sodium 136 Potassium 3.4 L Chloride 104 Carbon Dioxide 19 L Anion Gap 14 BUN 10.8 Creatinine 0.8 Est GFR (CKD-EPI)AfAm 103.19 Est GFR (CKD-EPI)NonAf 89.04 Random Glucose 100 Lactic Acid 2.7 H* Calcium 8.7 Magnesium Total Bilirubin 0.6 AST 19 ALT 22 Alkaline Phosphatase 81 Creatine Kinase 84 Troponin I < 0.02 C-Reactive Protein 0.6 H Total Protein 8.0 Albumin 4.2 Serum , Qual Negative Urine Color Urine Appearance Urine pH Ur Specific [place] Urine Protein Urine Glucose (UA) Urine Ketones Urine Blood Urine Nitrite Urine Bilirubin Urine Urobilinogen Ur Leukocyte Esterase Rheumatoid Arth Biomark COVID-19 ([facility]ON) HIV Ag/Ab Combo Qual Group A Strep Rapid 02/29/20 02/29/20 02/29/20 11:42 14:14 14:25 WBC 19.8 H RBC 4.30 Hgb 12.2 Hct 37.2 MCV 86.4 MCH 28.4 MCHC 32.9 RDW 13.8 Plt Count 330 MPV 7.0 L Absolute Neuts (auto) 17.9 H Neutrophils % 90.3 H Lymphocytes % 4.5 L D Monocytes % 5.0 Eosinophils % 0.0 D Basophils % 0.2 Nucleated RBC % 0 ESR Sodium Potassium Chloride Carbon Dioxide Anion Gap BUN Creatinine Est GFR (CKD-EPI)AfAm Est GFR (CKD-EPI)NonAf Random Glucose Lactic Acid 1.6 Calcium Magnesium Total Bilirubin AST ALT Alkaline Phosphatase Creatine Kinase Troponin I C-Reactive Protein Total Protein Albumin Serum , Qual Urine Color Yellow Urine Appearance Clear Urine pH 6.5 D Ur Specific [place] 1.011 Urine Protein Negative Urine Glucose (UA) Negative Urine Ketones Negative Urine Blood Negative Urine Nitrite Negative Urine Bilirubin Negative Urine Urobilinogen 0.2 Ur Leukocyte Esterase Negative Rheumatoid Arth Biomark COVID-19 ([facility]) HIV Ag/Ab Combo Qual Group A Strep Rapid 02/29/20 03/01/20 03/01/20 14:25 07:58 07:58 WBC 14.7 H RBC 3.66 Hgb 10.6 L Hct 31.7 L MCV 86.7 MCH 29.0 MCHC 33.4 RDW 14.2 Plt Count 264 MPV 7.2 L Absolute Neuts (auto) 12.1 H Neutrophils % 82.0 Lymphocytes % 10.1 D Monocytes % 7.4 Eosinophils % 0.1 D Basophils % 0.4 Nucleated RBC % 0 ESR Sodium Potassium Chloride Carbon Dioxide Anion Gap BUN Creatinine Est GFR (CKD-EPI)AfAm Est GFR (CKD-EPI)NonAf Random Glucose Lactic Acid Calcium Magnesium Total Bilirubin AST ALT Alkaline Phosphatase Creatine Kinase Troponin I C-Reactive Protein Total Protein Albumin Serum , Qual Urine Color Urine Appearance Urine pH Ur Specific [place] Urine Protein Urine Glucose (UA) Urine Ketones Urine Blood Urine Nitrite Urine Bilirubin Urine Urobilinogen Ur Leukocyte Esterase Rheumatoid Arth Biomark COVID-19 ([facility]) Not detected HIV Ag/Ab Combo Qual Negative Group A Strep Rapid 03/01/20 03/01/20 03/01/20 07:58 07:58 07:58 WBC RBC Hgb Hct MCV MCH MCHC RDW Plt Count MPV Absolute Neuts (auto) Neutrophils % Lymphocytes % Monocytes % Eosinophils % Basophils % Nucleated RBC % ESR 28 H Sodium 139 Potassium 3.4 L Chloride 109 H Carbon Dioxide 23 Anion Gap 7 L BUN 6.7 L Creatinine 0.6 Est GFR (CKD-EPI)AfAm 127.58 Est GFR (CKD-EPI)NonAf 110.08 Random Glucose 79 Lactic Acid Calcium 8.1 L Magnesium Total Bilirubin 0.9 AST 13 L ALT 17 Alkaline Phosphatase 59 Creatine Kinase Troponin I C-Reactive Protein Total Protein 6.1 L Albumin 3.0 L Serum , Qual Urine Color Urine Appearance Urine pH Ur Specific [place] Urine Protein Urine Glucose (UA) Urine Ketones Urine Blood Urine Nitrite Urine Bilirubin Urine Urobilinogen Ur Leukocyte Esterase Rheumatoid Arth Biomark 15.1 H COVID-19 ([facility]) HIV Ag/Ab Combo Qual Group A Strep Rapid 03/01/20 03/02/20 03/02/20 13:30 15:30 15:30 WBC 6.7 RBC 3.98 Hgb 11.5 Hct 34.6 MCV 87.0 MCH 28.8 MCHC 33.1 RDW 13.7 Plt Count 301 MPV 7.2 L Absolute Neuts (auto) 3.7 Neutrophils % 55.5 D Lymphocytes % 27.4 D Monocytes % 13.5 H D Eosinophils % 3.0 D Basophils % 0.6 Nucleated RBC % 0 ESR Sodium 139 Potassium 4.3 Chloride 106 Carbon Dioxide 27 Anion Gap 6 L BUN 6.4 L Creatinine 0.5 L Est GFR (CKD-EPI)AfAm 135.47 Est GFR (CKD-EPI)NonAf 116.89 Random Glucose 92 Lactic Acid Calcium 8.5 Magnesium 2.3 Total Bilirubin 0.3 AST 16 ALT 18 Alkaline Phosphatase 62 Creatine Kinase Troponin I C-Reactive Protein Total Protein 7.1 Albumin 3.4 Serum , Qual Urine Color Urine Appearance Urine pH Ur Specific [place] Urine Protein Urine Glucose (UA) Urine Ketones Urine Blood Urine Nitrite Urine Bilirubin Urine Urobilinogen Ur Leukocyte Esterase Rheumatoid Arth Biomark COVID-19 ([facility]) HIV Ag/Ab Combo Qual Group A Strep Rapid Negative Home Medications Medication Instructions Recorded Acetaminophen [Tylenol -] 1,000 mg PO Q6H #50 tablet 01/16/20 Current Medications Generic Name Dose Route Start Last Admin Trade Name Freq PRN Reason Stop Dose Admin Albuterol Sulfate 2 puff 03/01/20 10:15 Ventolin Hfa Inhaler - IH Q6H PRN SHORT OF BREATH/WHEEZING Docusate Sodium 100 mg 03/01/20 10:01 Colace - PO BID PRN CONSTIPATION Enoxaparin Sodium 40 mg 03/01/20 10:00 03/02/20 10:01 Lovenox - SQ 40 mg DAILY ANGELA Administration Morphine Sulfate 2 mg 02/29/20 18:53 03/02/20 13:54 Morphine Sulfate IVPUSH 2 mg Q4H PRN Administration PAIN LEVEL 7 - 10 ASSESSMENT AND PLAN: 44 F Bacteremia unknown origin Fever of unknown origin R/o PID/tubo-ovarian source Plan: COnt. broad spec abx, repeat blood cultures send for GC chlamydia/gonorrhea/trich/HIV/hepatitis panels 1 dose Diflucan for discharge ID following Trans-vaginal US DVT ppx: Lovenox
--- NOTE | 2020-03-02 17:53 | PN ---
Physical Exam: ATTENDING PHYSICIAN STATEMENT I saw and evaluated the patient. I reviewed the resident's note and discussed the case with the resident. I agree with the resident's findings and plan as documented. SUBJECTIVE: Patient seen and examined at bedside, WBC count trending down, pelvic pain improving. VSS. OBJECTIVE: GENERAL: Awake, alert, and fully oriented, in no acute distress. HEENT: NC/At, JULIO CÉSAR, EOMI, no conjunctival discharge, no posterior oropharynx exudates/erythema, no TTP of the sinuses, MMM NECK: No JVD, no lymphadenopathy LUNGS: CTA bilaterally. No wheezes, and no crackles. No accessory muscle use. HEART: RRR, normal S1 and S2 without murmur ABDOMEN: Soft, nondistendend, improved pain in b/l lower quadrants, no guarding, no rebound, no masses. MUSCULOSKELETAL: No CVA tenderness. EXTREMITIES: 2+ pulses, No calf tenderness. No peripheral edema. NEURO: No focal deficits. PSYCHIATRIC: Cooperative. Good eye contact. Appropriate mood and affect. SKIN: Warm, dry, no rashes or lesions noted, normal capillary refill. Vital Signs (72 hours) 02/29/20 02/29/20 02/29/20 11:07 12:30 14:33 Temperature 100.6 F H 101.1 F H Pulse Rate 111 H Pulse Rate [ 94 H 84 Right] Respiratory 18 19 18 Rate Blood Pressure 114/79 Blood Pressure 134/70 110/59 L [Right Arm] O2 Sat by Pulse 100 99 99 Oximetry (%) 02/29/20 02/29/20 02/29/20 16:57 20:10 20:44 Temperature 100.5 F H 101.8 F H 99.8 F H Pulse Rate 88 Pulse Rate [ 86 87 Right] Respiratory 19 18 18 Rate Blood Pressure 118/66 Blood Pressure 100/60 112/72 [Right Arm] O2 Sat by Pulse 98 98 95 Oximetry (%) 02/29/20 02/29/20 03/01/20 21:00 22:00 05:00 Temperature 99.8 F H 99.9 F H Pulse Rate 88 82 Pulse Rate [ Right] Respiratory 18 20 Rate Blood Pressure 118/66 114/69 Blood Pressure [Right Arm] O2 Sat by Pulse 95 95 97 Oximetry (%) 08/27/20 08/27/20 08/27/20 10:00 14:35 18:00 Temperature 98.9 F 99.3 F Pulse Rate 78 73 Pulse Rate [ Right] Respiratory 18 18 Rate Blood Pressure 107/72 123/68 Blood Pressure [Right Arm] O2 Sat by Pulse 97 97 96 Oximetry (%) 03/01/20 03/01/20 03/02/20 21:00 22:00 02:00 Temperature 98.7 F Pulse Rate 66 Pulse Rate [ Right] Respiratory 20 20 20 Rate Blood Pressure 114/76 Blood Pressure [Right Arm] O2 Sat by Pulse 96 96 100 Oximetry (%) 03/02/20 03/02/20 05:07 10:00 Temperature 98.6 F 98.6 F Pulse Rate 64 70 Pulse Rate [ Right] Respiratory 20 20 Rate Blood Pressure 110/65 106/68 Blood Pressure [Right Arm] O2 Sat by Pulse 100 95 Oximetry (%) Microbiology 03/01/20 13:30 Urine For Antigen Detection Legionella Antigen - Final 03/01/20 13:30 Urine For Antigen Detection Streptococcus pneumoniae Antigen (M - Final 02/29/20 12:00 Blood - Peripheral Venous Blood Culture - Final Bacillus Species 02/29/20 12:05 Blood - Peripheral Venous Blood Culture - Final Bacillus Species, Not Antracis 02/29/20 14:25 Urine - Urine Clean Catch Urine Culture - Final Normal U[facility]ital [place] [facility] Tests 02/29/20 02/29/20 02/29/20 11:36 11:36 11:36 WBC RBC Hgb Hct MCV MCH MCHC RDW Plt Count MPV Absolute Neuts (auto) Neutrophils % Lymphocytes % Monocytes % Eosinophils % Basophils % Nucleated RBC % ESR Sodium 136 Potassium 3.4 L Chloride 104 Carbon Dioxide 19 L Anion Gap 14 BUN 10.8 Creatinine 0.8 Est GFR (CKD-EPI)AfAm 103.19 Est GFR (CKD-EPI)NonAf 89.04 Random Glucose 100 Lactic Acid 2.7 H* Calcium 8.7 Magnesium Total Bilirubin 0.6 AST 19 ALT 22 Alkaline Phosphatase 81 Creatine Kinase 84 Troponin I < 0.02 C-Reactive Protein 0.6 H Total Protein 8.0 Albumin 4.2 Serum , Qual Negative Urine Color Urine Appearance Urine pH Ur Specific [place] Urine Protein Urine Glucose (UA) Urine Ketones Urine Blood Urine Nitrite Urine Bilirubin Urine Urobilinogen Ur Leukocyte Esterase Rheumatoid Arth Biomark COVID-19 ([facility]) HIV Ag/Ab Combo Qual Group A Strep Rapid 02/29/20 02/29/20 02/29/20 11:42 14:14 14:25 WBC 19.8 H RBC 4.30 Hgb 12.2 Hct 37.2 MCV 86.4 MCH 28.4 MCHC 32.9 RDW 13.8 Plt Count 330 MPV 7.0 L Absolute Neuts (auto) 17.9 H Neutrophils % 90.3 H Lymphocytes % 4.5 L D Monocytes % 5.0 Eosinophils % 0.0 D Basophils % 0.2 Nucleated RBC % 0 ESR Sodium Potassium Chloride Carbon Dioxide Anion Gap BUN Creatinine Est GFR (CKD-EPI)AfAm Est GFR (CKD-EPI)NonAf Random Glucose Lactic Acid 1.6 Calcium Magnesium Total Bilirubin AST ALT Alkaline Phosphatase Creatine Kinase Troponin I C-Reactive Protein Total Protein Albumin Serum , Qual Urine Color Yellow Urine Appearance Clear Urine pH 6.5 D Ur Specific [place] 1.011 Urine Protein Negative Urine Glucose (UA) Negative Urine Ketones Negative Urine Blood Negative Urine Nitrite Negative Urine Bilirubin Negative Urine Urobilinogen 0.2 Ur Leukocyte Esterase Negative Rheumatoid Arth Biomark COVID-19 ([facility]) HIV Ag/Ab Combo Qual Group A Strep Rapid 02/29/20 03/01/20 03/01/20 14:25 07:58 07:58 WBC 14.7 H RBC 3.66 Hgb 10.6 L Hct 31.7 L MCV 86.7 MCH 29.0 MCHC 33.4 RDW 14.2 Plt Count 264 MPV 7.2 L Absolute Neuts (auto) 12.1 H Neutrophils % 82.0 Lymphocytes % 10.1 D Monocytes % 7.4 Eosinophils % 0.1 D Basophils % 0.4 Nucleated RBC % 0 ESR Sodium Potassium Chloride Carbon Dioxide Anion Gap BUN Creatinine Est GFR (CKD-EPI)AfAm Est GFR (CKD-EPI)NonAf Random Glucose Lactic Acid Calcium Magnesium Total Bilirubin AST ALT Alkaline Phosphatase Creatine Kinase Troponin I C-Reactive Protein Total Protein Albumin Serum , Qual Urine Color Urine Appearance Urine pH Ur Specific [place] Urine Protein Urine Glucose (UA) Urine Ketones Urine Blood Urine Nitrite Urine Bilirubin Urine Urobilinogen Ur Leukocyte Esterase Rheumatoid Arth Biomark COVID-19 ([facility]) Not detected HIV Ag/Ab Combo Qual Negative Group A Strep Rapid 03/01/20 03/01/20 03/01/20 07:58 07:58 07:58 WBC RBC Hgb Hct MCV MCH MCHC RDW Plt Count MPV Absolute Neuts (auto) Neutrophils % Lymphocytes % Monocytes % Eosinophils % Basophils % Nucleated RBC % ESR 28 H Sodium 139 Potassium 3.4 L Chloride 109 H Carbon Dioxide 23 Anion Gap 7 L BUN 6.7 L Creatinine 0.6 Est GFR (CKD-EPI)AfAm 127.58 Est GFR (CKD-EPI)NonAf 110.08 Random Glucose 79 Lactic Acid Calcium 8.1 L Magnesium Total Bilirubin 0.9 AST 13 L ALT 17 Alkaline Phosphatase 59 Creatine Kinase Troponin I C-Reactive Protein Total Protein 6.1 L Albumin 3.0 L Serum , Qual Urine Color Urine Appearance Urine pH Ur Specific [place] Urine Protein Urine Glucose (UA) Urine Ketones Urine Blood Urine Nitrite Urine Bilirubin Urine Urobilinogen Ur Leukocyte Esterase Rheumatoid Arth Biomark 15.1 H COVID-19 ([facility]) HIV Ag/Ab Combo Qual Group A Strep Rapid 03/01/20 03/02/20 03/02/20 13:30 15:30 15:30 WBC 6.7 RBC 3.98 Hgb 11.5 Hct 34.6 MCV 87.0 MCH 28.8 MCHC 33.1 RDW 13.7 Plt Count 301 MPV 7.2 L Absolute Neuts (auto) 3.7 Neutrophils % 55.5 D Lymphocytes % 27.4 D Monocytes % 13.5 H D Eosinophils % 3.0 D Basophils % 0.6 Nucleated RBC % 0 ESR Sodium 139 Potassium 4.3 Chloride 106 Carbon Dioxide 27 Anion Gap 6 L BUN 6.4 L Creatinine 0.5 L Est GFR (CKD-EPI)AfAm 135.47 Est GFR (CKD-EPI)NonAf 116.89 Random Glucose 92 Lactic Acid Calcium 8.5 Magnesium 2.3 Total Bilirubin 0.3 AST 16 ALT 18 Alkaline Phosphatase 62 Creatine Kinase Troponin I C-Reactive Protein Total Protein 7.1 Albumin 3.4 Serum , Qual Urine Color Urine Appearance Urine pH Ur Specific [place] Urine Protein Urine Glucose (UA) Urine Ketones Urine Blood Urine Nitrite Urine Bilirubin Urine Urobilinogen Ur Leukocyte Esterase Rheumatoid Arth Biomark COVID-19 ([facility]) HIV Ag/Ab Combo Qual Group A Strep Rapid Negative Home Medications Medication Instructions Recorded Acetaminophen [Tylenol -] 1,000 mg PO Q6H #50 tablet 01/16/20 Current Medications Generic Name Dose Route Start Last Admin Trade Name Freq PRN Reason Stop Dose Admin Albuterol Sulfate 2 puff 03/01/20 10:15 Ventolin Hfa Inhaler - IH Q6H PRN SHORT OF BREATH/WHEEZING Docusate Sodium 100 mg 03/01/20 10:01 Colace - PO BID PRN CONSTIPATION Enoxaparin Sodium 40 mg 03/01/20 10:00 03/02/20 10:01 Lovenox - SQ 40 mg DAILY ANGELA Administration Morphine Sulfate 2 mg 02/29/20 18:53 03/02/20 13:54 Morphine Sulfate IVPUSH 2 mg Q4H PRN Administration PAIN LEVEL 7 - 10 ASSESSMENT AND PLAN: 44 F Bacteremia unknown origin Fever of unknown origin R/o PID/tubo-ovarian source Plan: COnt. broad spec abx, repeat blood cultures until negative x2 OBGYN consult for evaluation of ovarian cysts/endometrial lesion follow cx GC chlamydia/gonorrhea/Hepatitis, HIV negative. 1 dose Diflucan for vaginal discharge ID following DVT ppx: Lovenox Visit type - Emergency Visit Emergency Visit: Yes ED Registration Date: 02/29/20 Care time: The patient presented to the Emergency Department on the above date and was hospitalized for further evaluation of their emergent condition. - New Patient This patient is new to me today: No - Critical Care Critical Care patient: No - Discharge Referral Referred to [facility] Med P.C.: No
[2020-03-03] MEDS ORDERED: ACETAMINOPHEN 500 MG TABLET (FP) PO PRN (05:33)
--- NOTE | 2020-03-03 07:17 | CONSULT ---
Consult Consult Specialty:: OBGYN Reason for Consultation:: Endometrial polyp, ovarian cyst - History of Present Illness Chief Complaint: Fevers History of Present Illness: 44yo here with fever of unknown origin and diffuse abdominal pain, URI symptoms- cough with productive sputum History of 5 NSVDs, BTL 14 years ago. 1 SAB Regular cycles, no IMB. No postcoital bleeding. No history of STIs, remote h/o abnormal pap during a - which required no treatment. Last pap 7 months ago- normal. Done by PCP at [facility]. No known history of fibroids/polyps/ovarian cysts Uncertain of when last actual BIOLOGICAL SCIENTIST visit was done. 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: Alzheimer's, CVA, Dementia, Migraine, Multiple Sclerosis, Peripheral Neuropathy, Parkinson's, Seizure, Syncope, TIA, Vertigo, Other Cardio/Vascular: No: AFIB, Aneurysm, Aortic Insufficiency, Aortic Stenosis, CAD, CHF, Deep Vein Thrombosis, HTN, Hyperlipdemia, SC, Mitral Insufficiency, Mitral Stenosis, Murmur, Pulmonary Hypertension, Other Pulmonary: No: Asthma, Bronchitis, Cancer, COPD, O2 Dependent, Pneumonia, Previously Intubated, Pulmonary Embolus, Pulmonary Fibrosis, Sleep Apnea, Other Gastrointestinal: No: Ascites, Cancer, Constipation, Crohn's Disease, Diverticulitis, Diverticulosis, Esophageal Varices, Gastritis, GERD, GI Bleed, Hemorrhoids, Hiatal Hernia, Inflamatory Bowel Disease, Irritable Bowel Disease, Pancreatitis, Peptic Ulcer Disease, Ulcerative Colitis, Other Hepatobiliary: No: Cirrhosis, Cholelithiasis, Cholecystitis, Choledocholithiasi s, Hepatitis A, Hepatitis B, Hepatitis C, Other Renal/: No: Renal Failure, Renal Inusuff, BPH, Cancer, Hematuria, Hemodialysis, Neurogenic Bladder, Renal Calculi, UTI, Other ...LMP: 02/26/20 ...: No Heme/Onc: No: Anemia, B12 Deficiency, Bleeding Disorder, Cancer, Current Chemotherapy, Current Radiation Therapy, Hemochromatosis, Hypercoaguable State, Myeloproliferative Synd, Sickle Cell Disease, Sickle Cell Trait, Thrombocytopenia, Other Additional Medical History: denies - Past Surgical History Past Surgical History: Yes: Tubal Ligation (laparoscopic) - Alcohol/Substance Use Hx Alcohol Use: No History of Substance Use: reports: None - Smoking History Smoking history: Never smoked Have you smoked in the past 12 months: No - Social History ADL: Independent Home Medications - Allergies Allergies/Adverse Reactions: Allergies Allergy/AdvReac Type Severity Reaction Status Date / Time cefazolin AdvReac Itching Verified 02/29/20 11:11 vancomycin AdvReac Hives Verified 02/29/20 11:11 - Home Medications Home Medications: Ambulatory Orders Acetaminophen [Tylenol -] 1,000 mg PO Q6H #50 tablet 01/16/20 Physical Exam Vital Signs: Vital Signs Temperature 98.4 F 03/03/20 05:22 Pulse Rate 60 03/03/20 05:22 Respiratory Rate 18 03/03/20 05:22 Blood Pressure 105/65 03/03/20 05:22 O2 Sat by Pulse Oximetry (%) 99 03/03/20 05:22 Labs: CBC, BMP 03/02/20 15:30 03/02/20 15:30 Imaging - Results Cat Scan: Report Reviewed Ultrasound: Report Reviewed Assessment/Plan 44yo here with fever, +blood and urine cultures Primary management per medicine and ID team. +blood and urine cultures on admission GC/CT pending Imaging reviewed, 8cm uterus- which is normal. 2 small fibroids seen- pt does not have any symptoms from these (HMB/IMB/dysmenorrhea)- and requires no further intervention or management at this time. Sono also shows likely endometrial polyp visualized in the endometrial canal vs submucosal fibroid. Not contributing to clinical picture here and can be further evaluated and managed by her OBGYN as an outpatient. Sonogram also shows 1.9cm ovarian cyst, likely physiologic, in addition to an additional contralateral dominiant ovarian follicle; both normal findings and not related to patient's current clnical picture. This is little to no suspicion of PID given these findings. Nothing requiring in house BIOLOGICAL SCIENTIST management at this time. Patient may follow up as an outpatient for further evaluation of the endometrial polyp Rin Hu MD
[2020-03-03 12:37] LABS: BASO % 0.4 % (0-2.0); EOS % 3.1 % (0-4.5); HEMATOCRIT 36.8 % (32.4-45.2); HEMOGLOBIN 12.2 GM/dL (10.7-15.3); LYMPH % 30.2 % (8-40); MCH 28.5 pg (25.7-33.7); MCHC 33.1 g/dl (32.0-36.0); MEAN PLT VOLUME 6.8 fl (7.5-11.1); MONO % 10.3 % (3.8-10.2); PLATELET COUNT 354 K/MM3 (134-434); RBC 4.28 M/mm3 (3.60-5.2); RDW 13.8 % (11.6-15.6); WHITE BLOOD COUNT 7.2 K/mm3 (4.0-10.0)
--- NOTE | 2020-03-03 12:46 | CON.PULM ---
Consult Consult Specialty:: PULMONARY Referred by:: Dr Chavira Reason for Consultation:: shortness of breath - History of Present Illness Chief Complaint: fevers History of Present Illness: 44yo female with h/o nephrolithiasis who was admitted with fevers and abdominal pain. Found to be bacteremic with bacillus without clear source. Pulmonary consulted as she has been experiencing shortness of breath for the past few months. +cough with white sputum and wheezing. No chronic fevers, chills or sweats. She is a never smoker. Denies childhood or family history of asthma. - History Source History Provided By: Patient, Family Member, Medical Record Limitations to Obtaining History: Language Barrier - Past Medical History ...LMP: 02/26/20 ...: No Additional Medical History: denies - Past Surgical History Past Surgical History: Yes: Tubal Ligation (laparoscopic) - Alcohol/Substance Use Hx Alcohol Use: No History of Substance Use: reports: None - Smoking History Smoking history: Never smoked Have you smoked in the past 12 months: No - Social History ADL: Independent Home Medications - Allergies Allergies/Adverse Reactions: Allergies Allergy/AdvReac Type Severity Reaction Status Date / Time cefazolin AdvReac Itching Verified 02/29/20 11:11 vancomycin AdvReac Hives Verified 02/29/20 11:11 - Home Medications Home Medications: Ambulatory Orders Acetaminophen [Tylenol -] 1,000 mg PO Q6H #50 tablet 01/16/20 Review of Systems - Review of Systems Constitutional: reports: Fever, Weakness Eyes: denies: Recent Change in Vision HENT: denies: Nasal Congestion, Throat Pain Neck: denies: Stiffness, Tenderness Cardiovascular: reports: Shortness of Breath. denies: Chest Pain, Edema, Palpitations Respiratory: reports: Cough, SOB on Exertion, Wheezing. denies: Hemoptysis Gastrointestinal: reports: Abdominal Pain. denies: Nausea, Vomiting Genitourinary: denies: Dysuria, Hematuria Neurological: denies: Dizziness, Headache Physical Exam Vital Sings: Vital Signs Temperature 99.1 F 03/03/20 10:00 Pulse Rate 79 03/03/20 10:00 Respiratory Rate 18 03/03/20 10:00 Blood Pressure 107/69 03/03/20 10:00 O2 Sat by Pulse Oximetry (%) 97 03/03/20 10:00 Constitutional: Yes: Calm Eyes: Yes: Conjunctiva Clear, EOM Intact HENT: Yes: Atraumatic, Normocephalic Neck: Yes: Supple, Trachea Midline Cardiovascular: Yes: Regular Rate and Rhythm Respiratory: Yes: Diminished (decreased breath sounds at the bases) ...Clubbing: No Gastrointestinal: Yes: Normal Bowel Sounds, Soft. No: Tenderness Edema: No Neurological: Yes: Alert, Oriented Labs: CBC, BMP 03/03/20 11:50 Imaging - Results Chest X-ray: Report Reviewed, Image Reviewed Cat Scan: Report Reviewed, Image Reviewed (no infiltrates) Assessment/Plan Bacteremia r/o Asthma Nephrolithiasis - continue antibiotics per ID - trial of inhaled bronchodilators - will need outpt PFTs - DVT prophylaxis Thank you for this consult Scot Lao MD
[2020-03-03 13:02] LABS: ALBUMIN 3.5 g/dl (3.4-5.0); BILIRUBIN,TOTAL 0.2 mg/dL (0.2-1); BLOOD UREA NITROGEN 9.8 mg/dL (7-18); CALCIUM 9.2 mg/dL (8.5-10.1); CREATININE 0.6 mg/dL (0.55-1.3); POTASSIUM 3.9 mmol/L (3.5-5.1); TOT PROT 7.6 g/dl (6.4-8.2)
--- NOTE | 2020-03-03 13:42 | PN ---
Physical Exam: SUBJECTIVE: Patient seen and examined at bedside, WBC normalized, afebrile, denies complaints. Lay Out Former advised pt. 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 Abx DCed, awaiting repeat blood cx, if negative may DC. OBJECTIVE: GENERAL: Awake, alert, and fully oriented, in no acute distress. HEENT: NC/At, JULIO CÉSAR, EOMI, no conjunctival discharge, herpetic-type rash on upper/lower lips, also involving roof of mouth NECK: No JVD, no lymphadenopathy LUNGS: CTA bilaterally. No wheezes, and no crackles. No accessory muscle use. HEART: RRR, normal S1 and S2 without murmur ABDOMEN: Soft, nondistendend, improved pain in b/l lower quadrants, no guarding, no rebound, no masses. MUSCULOSKELETAL: No CVA tenderness. EXTREMITIES: 2+ pulses, No calf tenderness. No peripheral edema. NEURO: No focal deficits. PSYCHIATRIC: Cooperative. Good eye contact. Appropriate mood and affect. SKIN: Warm, dry, no rashes or lesions noted, normal capillary refill. Laboratory Results - last 24 hr 03/01/20 03/02/20 03/02/20 07:58 15:30 15:30 WBC 6.7 RBC 3.98 Hgb 11.5 Hct 34.6 MCV 87.0 MCH 28.8 MCHC 33.1 RDW 13.7 Plt Count 301 MPV 7.2 L Absolute Neuts (auto) 3.7 Neutrophils % 55.5 D Lymphocytes % 27.4 D Monocytes % 13.5 H D Eosinophils % 3.0 D Basophils % 0.6 Nucleated RBC % 0 Sodium 139 Potassium 4.3 Chloride 106 Carbon Dioxide 27 Anion Gap 6 L BUN 6.4 L Creatinine 0.5 L Est GFR (CKD-EPI)AfAm 135.47 Est GFR (CKD-EPI)NonAf 116.89 Random Glucose 92 Calcium 8.5 Magnesium 2.3 Total Bilirubin 0.3 AST 16 ALT 18 Alkaline Phosphatase 62 Total Protein 7.1 Albumin 3.4 KHARI Screen Negative 03/03/20 03/03/20 11:42 11:50 WBC 7.2 RBC 4.28 Hgb 12.2 Hct 36.8 MCV 86.0 MCH 28.5 MCHC 33.1 RDW 13.8 Plt Count 354 MPV 6.8 L Absolute Neuts (auto) 4.0 Neutrophils % 56.0 Lymphocytes % 30.2 Monocytes % 10.3 H Eosinophils % 3.1 Basophils % 0.4 Nucleated RBC % 0 Sodium 138 Potassium 3.9 Chloride 106 Carbon Dioxide 26 Anion Gap 7 L BUN 9.8 Creatinine 0.6 Est GFR (CKD-EPI)AfAm 127.58 Est GFR (CKD-EPI)NonAf 110.08 Random Glucose 111 H Calcium 9.2 Magnesium Total Bilirubin 0.2 AST 15 ALT 19 Alkaline Phosphatase 68 Total Protein 7.6 Albumin 3.5 KHARI Screen Active Medications Generic Name Dose Route Start Last Admin Trade Name Freq PRN Reason Stop Dose Admin Acetaminophen 500 mg 03/03/20 05:33 03/03/20 05:40 Tylenol - PO 500 mg Q6H PRN Administration HEADACHE Albuterol Sulfate 2 puff 03/01/20 10:15 Ventolin Hfa Inhaler - IH Q6H PRN SHORT OF BREATH/WHEEZING Albuterol/Ipratropium 1 amp 03/03/20 14:00 Duoneb - NEB RTID ANGELA Docusate Sodium 100 mg 03/01/20 10:01 Colace - PO BID PRN CONSTIPATION Enoxaparin Sodium 40 mg 03/01/20 10:00 03/02/20 10:01 Lovenox - SQ 40 mg DAILY ANGELA Administration Morphine Sulfate 2 mg 02/29/20 18:53 03/02/20 13:54 Morphine Sulfate IVPUSH 2 mg Q4H PRN Administration PAIN LEVEL 7 - 10 Valacyclovir HCl 1,000 mg 03/03/20 11:00 Valtrex - PO BID [facility] ASSESSMENT/PLAN: 44 F Bacteremia unknown origin New herpetic eruptive rash on upper/lower lips and some roof of mouth Fever of unknown origin PID ruled out Suspected bronchial asthma RF factor positive Plan: DC abx, follow repeat blood cultures Start Valtrex for HSV oralis Pulmonary recommending Albuterol PRN and PFTs as OP RF factor positive, pt. denies pertinent symptoms (joint pain, decreased mobility) workup further w/ PMD OBGYN consult appreciated ID following DVT ppx: Lovenox Visit type - Emergency Visit Emergency Visit: Yes ED Registration Date: 02/29/20 Care time: The patient presented to the Emergency Department on the above date and was hospitalized for further evaluation of their emergent condition. - New Patient This patient is new to me today: No - Critical Care Critical Care patient: No - Discharge Referral Referred to [facility] No
--- NOTE | 2020-03-03 15:48 | PN ---
Progress Note, Physician History of Present Illness: Pt states she feels better. No lower abd pain, fever resolving. Has some nausea but no vomiting. Tolerating diet. No cough/SOB noted. - Current Medication List Current Medications: Active Medications Acetaminophen (Tylenol -) 500 mg PO Q6H PRN PRN Reason: HEADACHE Last Admin: 03/03/20 05:40 Dose: 500 mg Documented by: Albuterol Sulfate (Ventolin Hfa Inhaler -) 2 puff IH Q6H PRN PRN Reason: SHORT OF BREATH/WHEEZING Albuterol/Ipratropium (Duoneb -) 1 amp NEB RTID [facility] Docusate Sodium (Colace -) 100 mg PO BID PRN PRN Reason: CONSTIPATION Enoxaparin Sodium (Lovenox -) 40 mg SQ DAILY [facility] Last Admin: 03/02/20 10:01 Dose: 40 mg Documented by: Morphine Sulfate (Morphine Sulfate) 2 mg IVPUSH Q4H PRN PRN Reason: PAIN LEVEL 7 - 10 Last Admin: 03/02/20 13:54 Dose: 2 mg Documented by: Valacyclovir HCl (Valtrex -) 1,000 mg PO BID [facility] - Objective Vital Signs: Vital Signs Temperature 99.1 F 03/03/20 10:00 Pulse Rate 79 03/03/20 10:00 Respiratory Rate 18 03/03/20 10:00 Blood Pressure 107/69 03/03/20 10:00 O2 Sat by Pulse Oximetry (%) 97 03/03/20 10:00 Constitutional: Yes: No Distress, Calm Eyes: Yes: Conjunctiva Clear Cardiovascular: Yes: Regular Rate and Rhythm Respiratory: Yes: Diminished (slightly, basilar) Gastrointestinal: Yes: Normal Bowel Sounds, Soft Genitourinary: Yes: WNL Integumentary: Yes: Rash (vesicular rash Lt upper lip) Neurological: Yes: Alert, Oriented Labs: CBC, BMP 03/03/20 11:50 03/03/20 11:42 Laboratory Last Values WBC 7.2 K/mm3 (4.0-10.0) 03/03/20 11:50 RBC 4.28 M/mm3 (3.60-5.2) 03/03/20 11:50 Hgb 12.2 GM/dL (10.7-15.3) 03/03/20 11:50 Hct 36.8 % (32.4-45.2) 03/03/20 11:50 MCV 86.0 fl (80-96) 03/03/20 11:50 MCH 28.5 pg (25.7-33.7) 03/03/20 11:50 MCHC 33.1 g/dl (32.0-36.0) 03/03/20 11:50 RDW 13.8 % (11.6-15.6) 03/03/20 11:50 Plt Count 354 K/MM3 (134-434) 03/03/20 11:50 MPV 6.8 fl (7.5-11.1) L 03/03/20 11:50 Absolute Neuts (auto) 4.0 K/mm3 (1.5-8.0) 03/03/20 11:50 Neutrophils % 56.0 % (42.8-82.8) 03/03/20 11:50 Lymphocytes % 30.2 % (8-40) 03/03/20 11:50 Monocytes % 10.3 % (3.8-10.2) H 03/03/20 11:50 Eosinophils % 3.1 % (0-4.5) 03/03/20 11:50 Basophils % 0.4 % (0-2.0) 03/03/20 11:50 Nucleated RBC % 0 % (0-0) 03/03/20 11:50 ESR 28 mm/hr (0-20) H 03/01/20 07:58 Sodium 138 mmol/L (136-145) 03/03/20 11:42 Potassium 3.9 mmol/L (3.5-5.1) 03/03/20 11:42 Chloride 106 mmol/L (98-107) 03/03/20 11:42 Carbon Dioxide 26 mmol/L (21-32) 03/03/20 11:42 Anion Gap 7 MMOL/L (8-16) L 03/03/20 11:42 BUN 9.8 mg/dL (7-18) 03/03/20 11:42 Creatinine 0.6 mg/dL (0.55-1.3) 03/03/20 11:42 Est GFR (CKD-EPI)AfAm 127.58 03/03/20 11:42 Est GFR (CKD-EPI)NonAf 110.08 03/03/20 11:42 Random Glucose 111 mg/dL (74-106) H 03/03/20 11:42 Lactic Acid 1.6 mmol/L (0.4-2.0) 02/29/20 14:14 Calcium 9.2 mg/dL (8.5-10.1) 03/03/20 11:42 Magnesium 2.3 mg/dL (1.8-2.4) 03/02/20 15:30 Total Bilirubin 0.2 mg/dL (0.2-1) 03/03/20 11:42 AST 15 U/L (15-37) 03/03/20 11:42 ALT 19 U/L (13-61) 03/03/20 11:42 Alkaline Phosphatase 68 U/L (45-117) 03/03/20 11:42 Creatine Kinase 84 U/L (26-192) 02/29/20 11:36 Troponin I < 0.02 ng/ml (0.00-0.05) 02/29/20 11:36 C-Reactive Protein 0.6 MG/DL (0.00-0.3) H 02/29/20 11:36 Total Protein 7.6 g/dl (6.4-8.2) 03/03/20 11:42 Albumin 3.5 g/dl (3.4-5.0) 03/03/20 11:42 Serum , Qual Negative 02/29/20 11:36 Urine Color Yellow 02/29/20 14:25 Urine Appearance Clear 02/29/20 14:25 Urine pH 6.5 (5.0-8.0) D 02/29/20 14:25 Ur Specific Vaughn 1.011 (1.010-1.035) 02/29/20 14:25 Urine Protein Negative (NEGATIVE) 02/29/20 14:25 Urine Glucose (UA) Negative (NEGATIVE) 02/29/20 14:25 Urine Ketones Negative (NEGATIVE) 02/29/20 14:25 Urine Blood Negative (NEGATIVE) 02/29/20 14:25 Urine Nitrite Negative (NEGATIVE) 02/29/20 14:25 Urine Bilirubin Negative (NEGATIVE) 02/29/20 14:25 Urine Urobilinogen 0.2 mg/dL (0.2-1.0) 02/29/20 14:25 Ur Leukocyte Esterase Negative (NEGATIVE) 02/29/20 14:25 Rheumatoid Arth Biomark 15.1 IU/mL (0.0-13.9) H 03/01/20 07:58 KHARI Screen Negative (.) 03/01/20 07:58 COVID-19 ([place]) Not detected (Not Detected) 02/29/20 14:25 HIV Ag/Ab Combo Qual Negative (NEGATIVE) 03/01/20 07:58 Group A Strep Rapid Negative (Negative) 03/01/20 13:30 Microbiology 03/02/20 10:40 Vaginal GC Culture - Preliminary NO NEISSERIA GONORRHOEAE ISOLATED AFTER 24 HOURS 03/02/20 00:04 Throat Throat Culture - Final NO BETA HEMOLYTIC STREPTOCOCCI ISOLATED 03/01/20 13:30 Urine For Antigen Detection Legionella Antigen - Final 03/01/20 13:30 Urine For Antigen Detection Streptococcus pneumoniae Antigen (M - Final 02/29/20 12:00 Blood - Peripheral Venous Blood Culture - Final Bacillus Species 02/29/20 12:05 Blood - Peripheral Venous Blood Culture - Final Bacillus Species, Not Antracis 02/29/20 14:25 Urine - Urine Clean Catch Urine Culture - Final Normal Urogenital Spring Problem List - Problems (1) Fever Code(s): R50.9 - FEVER, UNSPECIFIED Assessment/Plan Bacteremia Abd pain Labial herpes Fever Leukocytosis -- pt appears to be clinically improving with downward temp/wbc trend, abd pain resolved -- follow up repeat blood cultures -- continue current antibiotics for now -- all imaging/lab results noted continue monitor
[2020-03-03] MEDS: ALBUTEROL SO4 2.5/IPRATROPIUM 0.5 INH SOL 3 ML VIAL.NEB. NEB SCH (20:45)
[2020-03-03] MEDS: valACYclovir HCL 500 MG TABLET (FP) PO SCH (22:21)
[2020-03-03] MEDS ORDERED: SIMETHICONE 80 MG TAB.CHEW (FP) PO ONE (22:57)
[2020-03-04] MEDS: ENOXAPARIN NA (PORCINE) 40 MG/0.4 ML DISP.SYRIN SQ SCH (10:07)
[2020-03-04] MEDS: valACYclovir HCL 500 MG TABLET (FP) PO SCH (10:07)
[2020-03-04 10:12] VITALS: BP 109/60; PULSE 88; TEMP 97.6
--- NOTE | 2020-03-04 11:15 | DS ---
Physical Exam: SUBJECTIVE: Patient seen and examined Patient seen and examined has no rash abdominal pain fever chills. OBJECTIVE: Vital Signs Period Temp Pulse Resp BP Sys/[place] Pulse Ox Last 24 Hr 97.6 F-98.5 F 64-88 18-18 94-109/58-63 95-97 PHYSICAL EXAM GENERAL: The patient is awake, alert, and fully oriented, in no acute distress. HEAD: Normal with no signs of trauma. EYES: PERRL, extraocular movements intact, sclera anicteric, conjunctiva clear. ENT: Ears normal, nares patent, oropharynx clear without exudates, moist mucous membranes. NECK: Trachea midline, full range of motion, supple. LUNGS: Breath sounds equal, clear to auscultation bilaterally, no wheezes, no crackles, no accessory muscle use. HEART: Regular rate and rhythm, S1, S2 without murmur, rub or gallop. ABDOMEN: Soft, nontender, nondistended, normoactive bowel sounds, no guarding, no rebound, no hepatosplenomegaly, no masses. EXTREMITIES: 2+ pulses, warm, well-perfused, no edema. NEUROLOGICAL: Cranial nerves II through XII grossly intact. Normal speech, gait not observed. PSYCH: Normal mood, normal affect. SKIN: Warm, dry, normal turgor, no rashes or lesions noted. LABS Laboratory Results - last 24 hr 03/02/20 03/02/20 03/03/20 15:30 15:30 11:42 WBC RBC Hgb Hct MCV MCH MCHC RDW Plt Count MPV Absolute Neuts (auto) Neutrophils % Lymphocytes % Monocytes % Eosinophils % Basophils % Nucleated RBC % Sodium 138 Potassium 3.9 Chloride 106 Carbon Dioxide 26 Anion Gap 7 L BUN 9.8 Creatinine 0.6 Est GFR (CKD-EPI)AfAm 127.58 Est GFR (CKD-EPI)NonAf 110.08 Random Glucose 111 H Calcium 9.2 Total Bilirubin 0.2 AST 15 ALT 19 Alkaline Phosphatase 68 Total Protein 7.6 Albumin 3.5 Hep A IgM Ab Confirm Negative Hep Bs Antigen Negative Hep B Core IgM Ab Negative Hepatitis C Ab (EIA) <0.1 HIV 1&2 Ag/Ab, 4th Gen Non reactive 03/03/20 11:50 WBC 7.2 RBC 4.28 Hgb 12.2 Hct 36.8 MCV 86.0 MCH 28.5 MCHC 33.1 RDW 13.8 Plt Count 354 MPV 6.8 L Absolute Neuts (auto) 4.0 Neutrophils % 56.0 Lymphocytes % 30.2 Monocytes % 10.3 H Eosinophils % 3.1 Basophils % 0.4 Nucleated RBC % 0 Sodium Potassium Chloride Carbon Dioxide Anion Gap BUN Creatinine Est GFR (CKD-EPI)AfAm Est GFR (CKD-EPI)NonAf Random Glucose Calcium Total Bilirubin AST ALT Alkaline Phosphatase Total Protein Albumin Hep A IgM Ab Confirm Hep Bs Antigen Hep B Core IgM Ab Hepatitis C Ab (EIA) HIV 1&2 Ag/Ab, 4th Gen HOSPITAL COURSE: 44 old female with history of kidney stone presented to the ER with fever and blisters on her face she was admitted with abdominal pain and all the work-up for STD and PID were done all negative nothing grew in her blood cultures. She is off the antibiotic. She is cleared by infectious disease doctor. She is going to go home on her home medication with Tylenol as needed. She also positive rheumatoid factor discussed the patient to follow-up with up with primary care doctor and seek a referral to cathodic protection technician. She has no symptom of rheumatoid sort at this time. She understood. She had wheezing one time in the hospital so she will go home on as needed albuterol inhaler. Also for her with labialis she will get Valtrex for twice a day for next 10 days. Date of Admission:02/29/20 Date of Discharge: 03/04/20 Minutes to complete discharge: 30 Discharge Summary Problems reviewed: Yes Reason For Visit: FEVER VIRAL INFECTION ABDOMINAL PAIN Current Active Problems Abdominal pain (Acute) Fever (Acute) Viral syndrome (Acute) Condition: Improved - Instructions Diet, Activity, Other Instructions: Regular diet follow-up with the primary care doctor. Referrals: Karl Gaines II, DO [Primary Care Provider] - Disposition: HOME - Home Medications Comprehensive Discharge Medication List: Ambulatory Orders Acetaminophen [Tylenol -] 1,000 mg PO Q6H #50 tablet 01/16/20 Albuterol Sulfate Inhaler - [Ventolin HFA Inhaler -] 2 puff IH Q6H PRN #1 inhaler 03/04/20 Valacyclovir HCl [Valtrex -] 1,000 mg PO BID #20 tablet 03/04/20 This patient is new to me today: Yes Date on this admission: 03/04/20 Emergency Visit: Yes ED Registration Date: 02/29/20 Care time: The patient presented to the Emergency Department on the above date and was hospitalized for further evaluation of their emergent condition. Critical Care patient: No - Discharge Referral Referred to [facility] No
[2020-03-04] MEDS: ALBUTEROL SO4 2.5/IPRATROPIUM 0.5 INH SOL 3 ML VIAL.NEB. NEB SCH (11:39)
--- NOTE | 2020-03-04 11:56 | PN ---
Progress Note (short form) - Note Progress Note: PULMONARY Did not receive nebulizer treatment due to pending COVID status. Vital Signs Period Temp Pulse Resp BP Sys/[place] Pulse Ox Last 24 Hr 97.6 F-98.5 F 64-88 18-18 94-109/58-63 95-97 Gen: NAD at rest Heart: RRR Lung: decreased breath sounds at the bases Abd: soft, nontender Ext: no edema CBC, BMP 03/03/20 11:50 03/03/20 11:42 Active Medications Acetaminophen (Tylenol -) 500 mg PO Q6H PRN PRN Reason: HEADACHE Last Admin: 03/03/20 05:40 Dose: 500 mg Documented by: Albuterol Sulfate (Ventolin Hfa Inhaler -) 2 puff IH Q6H PRN PRN Reason: SHORT OF BREATH/WHEEZING Albuterol/Ipratropium (Duoneb -) 1 amp NEB RTID [facility] Last Admin: 03/04/20 11:39 Dose: 1 amp Documented by: Docusate Sodium (Colace -) 100 mg PO BID PRN PRN Reason: CONSTIPATION Enoxaparin Sodium (Lovenox -) 40 mg SQ DAILY [facility] Last Admin: 03/04/20 10:07 Dose: 40 mg Documented by: Valacyclovir HCl (Valtrex -) 1,000 mg PO BID [facility] Last Admin: 03/04/20 10:07 Dose: 1,000 mg Documented by: A/P Bacteremia r/o Asthma Nephrolithiasis - trial of inhaled bronchodilators - will need outpt PFTs - DVT prophylaxis
== END 2020-03-04 14:16 | disposition home or self-care (01) | DRG 723 ==
LOC: JER 10:57 → JERBED 17:11 → J6S 20:40
PROVIDERS: ADMIT Internal Medicine; ATTEND Internal Medicine
DX: B34.9 Viral infection, unspecified (principal); B00.1 Herpesviral vesicular dermatitis; R78.81 Bacteremia; D72.829 Elevated white blood cell count, unspecified; N20.0 Calculus of kidney; N28.1 Cyst of kidney, acquired; E87.6 Hypokalemia; B10.89 Other human herpesvirus infection; J45.909 Unspecified asthma, uncomplicated; E87.2 Acidosis; R50.9 Fever, unspecified; R21 Rash and other nonspecific skin eruption
CPT/HCPCS: 36415; 71045-TC-FY; 71250-TC; 74176-TC; 76830-TC; 80053; 80074; 81003; 82550; 83605; 83735; 84484; 84703; 85025; 85651; 86038; 86140; 86431; 87040; 87070; 87081; 87086; 87389; 87491; 87591; 87633; 87661; 87880; 87899; 93005; 93010; 93306-TC; 94640; 99285-25; J0131; U0003

== ENCOUNTER 2020-08-16 00:21 | Emergency (ER) | payer OTHER ==
[2020-08-16 01:22] VITALS: BP 107/71; PULSE 75; TEMP 98.4; BMI 26.2
[2020-08-16] MEDS ORDERED: ACETAMINOPHEN 325 MG TABLET (FP) PO ONE (01:53)
[2020-08-16] MEDS ORDERED: FAMOTIDINE 10 MG TABLET PO ONE (01:53)
[2020-08-16] MEDS ORDERED: DEXAMETHASONE 4 MG TABLET (FP) PO ONE (01:57)
[2020-08-16] MEDS ORDERED: DEXAMETHASONE SOD PHOSPHATE 10 MG/1 ML VIAL IM ONE (01:58)
[2020-08-16] MEDS ORDERED: FAMOTIDINE 10 MG TABLET ONE (02:18)
[2020-08-16] MEDS ORDERED: ACETAMINOPHEN 325 MG TABLET (FP) ONE (02:18)
[2020-08-16] MEDS ORDERED: DEXAMETHASONE SOD PHOSPHATE 10 MG/1 ML VIAL ONE (02:18)
== END 2020-08-16 03:34 | disposition home or self-care (01) ==
LOC: JER 00:21
PROC: 3E023GC Introduction of Other Therapeutic Substance into Muscle, Percutaneous Approach (ICD-10-PCS; principal; 2020-08-16)
DX: J02.9 Acute pharyngitis, unspecified (principal)
CPT/HCPCS: 87070; 87880; 99284-25; C9803; J1100; U0003

== ENCOUNTER 2021-05-24 09:40 | Emergency (ER) | payer OTHER ==
[2021-05-24 09:50] VITALS: BP 109/72; PULSE 90; TEMP 99.3; BMI 26.4
== END 2021-05-24 10:44 | disposition home or self-care (01) ==
LOC: JER 09:40
DX: J06.9 Acute upper respiratory infection, unspecified (principal)
CPT/HCPCS: 99283-25; C9803; U0003; U0005

== ENCOUNTER 2022-01-20 01:33 | Emergency (ER) | payer OTHER ==
[2022-01-20 02:17] VITALS: BMI 35.6
[2022-01-20] MEDS ORDERED: SODIUM CHLORIDE 0.9% 500 ML INFUS.BAG IV ONE (02:30)
[2022-01-20] MEDS ORDERED: ONDANSETRON 4 MG/2 ML VIAL IVPB ONE (02:30)
[2022-01-20] MEDS ORDERED: ACETAMINOPHEN 1000 MG/100 ML BAG IVPB ONE (02:30)
[2022-01-20] MEDS ORDERED: KETOROLAC TROMETHAMINE 15 MG/ML VIAL IVPUSH ONE (02:31)
[2022-01-20] MEDS ORDERED: ONDANSETRON 4 MG/2 ML VIAL ONE (02:55)
[2022-01-20] MEDS ORDERED: KETOROLAC TROMETHAMINE 15 MG/ML VIAL ONE (02:55)
[2022-01-20] MEDS ORDERED: ACETAMINOPHEN INJECTION 100 ML IVPB ONE (02:55)
[2022-01-20 03:09] LABS: BASO % 0.2 % (0-2.0); EOS % 0.1 % (0-4.5); HEMATOCRIT 35.3 % (32.4-45.2); LYMPH % 6.1 % (8-40); MCH 28.6 pg (25.7-33.7); MCHC 33.9 g/dl (32.0-36.0); MEAN CELL VOLUME 84.5 fl (80-96); MEAN PLT VOLUME 6.6 fl (7.5-11.1); MONO % 9.5 % (3.8-10.2); NEUT % 84.1 % (42.8-82.8); PLATELET COUNT 309 10^3/uL (134-434); RBC 4.18 M/mm3 (3.60-5.2); RDW 15.9 % (11.6-15.6)
[2022-01-20 03:16] LABS: INR 1.03 (0.83-1.09); PROTHROMBIN TIME (PATIENT) 11.9 SEC (9.7-13.0)
[2022-01-20 03:19] LABS: ACTIVATED PTT 30.6 SECONDS (25.2-36.5)
[2022-01-20 03:22] LABS: BLOOD UREA NITROGEN 14.8 mg/dL (7-18); CALCIUM 8.7 mg/dL (8.5-10.1)
[2022-01-20 03:23] LABS: ALBUMIN 3.8 g/dl (3.4-5.0); PH,URINE >= 9.0 (5.0-8.0); URINE APPEARANCE CLEAR; URINE BILIRUBIN NEGATIVE (NEGATIVE); URINE COLOR YELLOW; URINE GLUCOSE (UA) NEGATIVE (NEGATIVE); URINE KETONE TRACE (NEGATIVE); URINE LEUK ESTERASE NEGATIVE (NEGATIVE); URINE NITRITE NEGATIVE (NEGATIVE); URINE PROTEIN NEGATIVE (NEGATIVE); URINE UROBILINOGEN 0.2 mg/dL (0.2-1.0)
[2022-01-20 03:25] LABS: CREATININE 0.7 mg/dL (0.55-1.3)
[2022-01-20 03:27] LABS: BILIRUBIN,TOTAL 0.4 mg/dL (0.2-1); TOT PROT 7.4 g/dl (6.4-8.2)
[2022-01-20 04:15] VITALS: BP 101/57; PULSE 82; TEMP 99
[2022-01-20] MEDS ORDERED: DOXYCYCLINE HYCLATE 100 MG CAPSULE PO ONE ×2 (04:50→05:00)
[2022-01-20] MEDS ORDERED: metroNIDAZOLE 250 MG TABLET PO ONE (04:50)
[2022-01-20] MEDS ORDERED: metroNIDAZOLE 250 MG TABLET ONE (05:00)
== END 2022-01-20 05:08 | disposition home or self-care (01) ==
LOC: JER 01:33
PROC: 3E0333Z Introduction of Anti-inflammatory into Peripheral Vein, Percutaneous Approach (ICD-10-PCS; principal; 2022-01-20)
PROC: 3E0333Z Introduction of Anti-inflammatory into Peripheral Vein, Percutaneous Approach (ICD-10-PCS; 2022-01-20)
PROC: 3E033GC Introduction of Other Therapeutic Substance into Peripheral Vein, Percutaneous Approach (ICD-10-PCS; 2022-01-20)
DX: R10.32 Left lower quadrant pain (principal); R11.2 Nausea with vomiting, unspecified
CPT/HCPCS: 0241U-QW; 36415; 74176-TC; 80053; 81003; 84703; 85025; 85610; 85730; 87040; 87086; 87491; 87591; 87661; 99284-25

== ENCOUNTER 2023-08-15 23:39 | Inpatient (IN) | payer OTHER ==
[2023-08-15 23:45] VITALS: BMI 23.9
[2023-08-16] MEDS: ONDANSETRON 4 MG/2 ML VIAL IVPUSH ONE ×2 (00:56→23:17)
[2023-08-16] MEDS: KETOROLAC TROMETHAMINE 15 MG/ML VIAL IVPUSH ONE (00:56)
[2023-08-16] MEDS: SODIUM CHLORIDE 0.9% 500 ML INFUS.BAG IV ONE (00:57)
[2023-08-16] MEDS ORDERED: KETOROLAC TROMETHAMINE 15 MG/ML VIAL ONE ×3 (00:58→21:16)
[2023-08-16] MEDS ORDERED: ONDANSETRON 4 MG/2 ML VIAL ONE (00:58)
[2023-08-16 01:22] LABS: BASO % 0.4 % (0-2.0); EOS % 0.3 % (0-4.5); HEMATOCRIT 37.5 % (32.4-45.2); HEMOGLOBIN 12.4 GM/dL (10.7-15.3); LYMPH % 19.5 % (8-40); MCH 29.3 pg (25.7-33.7); MCHC 33.1 g/dl (32.0-36.0); MEAN CELL VOLUME 88.3 fl (80-96); MEAN PLT VOLUME 6.6 fl (7.5-11.1); MONO % 10.3 % (3.8-10.2); NEUT % 69.5 % (42.8-82.8); PLATELET COUNT 367 10^3/uL (134-434); RBC 4.25 M/mm3 (3.60-5.2); RDW 15.2 % (11.6-15.6); WHITE BLOOD COUNT 11.9 K/mm3 (4.0-10.0)
[2023-08-16 01:29] LABS: INR 1.01 (0.83-1.09); PROTHROMBIN TIME (PATIENT) 11.7 SEC (9.7-13.0)
[2023-08-16 01:32] LABS: ACTIVATED PTT 33.4 SECONDS (25.2-36.5)
[2023-08-16 01:35] LABS: EPI CELLS 13 /uL (0-25.1); HYALINE CASTS 0 /uL (0-3.1); URINE APPEARANCE TURBID; URINE BACTERIA 64 /uL (0-1359); URINE BILIRUBIN NEGATIVE (NEGATIVE); URINE COLOR YELLOW; URINE GLUCOSE (UA) NEGATIVE (NEGATIVE); URINE KETONE NEGATIVE (NEGATIVE); URINE LEUK ESTERASE TRACE (NEGATIVE); URINE NITRITE NEGATIVE (NEGATIVE); URINE PROTEIN NEGATIVE (NEGATIVE); URINE RBC 30 /uL (0-23.9); URINE UROBILINOGEN 0.2 mg/dL (0.2-1.0); URINE WBC 16 /uL (0-25.8)
[2023-08-16 01:44] LABS: POTASSIUM 3.7 mmol/L (3.5-5.1)
[2023-08-16 01:46] LABS: BLOOD UREA NITROGEN 17.2 mg/dL (7-18)
[2023-08-16 01:49] LABS: CREATININE 0.7 mg/dL (0.55-1.3)
[2023-08-16 01:51] LABS: BILIRUBIN,TOTAL 0.3 mg/dL (0.2-1); TOT PROT 7.7 g/dl (6.4-8.2)
[2023-08-16] MEDS: ACETAMINOPHEN 1000 MG/100 ML BAG IVPB ONE (05:42)
[2023-08-16] MEDS ORDERED: ACETAMINOPHEN INJECTION 100 ML IVPB ONE ×2 (05:44→09:38)
[2023-08-16] MEDS ORDERED: ENOXAPARIN NA (PORCINE) 40 MG/0.4 ML DISP.SYRIN SQ ONE (09:38)
[2023-08-16] MEDS: ENOXAPARIN NA (PORCINE) 40 MG/0.4 ML DISP.SYRIN SQ SCH (09:47)
[2023-08-16] MEDS: LINEZOLID 600 MG PREMIX BAG 600 MG/300 ML BAG IVPB SCH (12:04)
[2023-08-16] MEDS: ACETAMINOPHEN 1000 MG/100 ML BAG IVPB PRN (12:04)
[2023-08-16] MEDS: LACTATED RINGERS SOLUTION 1,000 ML/1,000 ML INFUS.BAG IV SCH (15:00)
[2023-08-16] MEDS: KETOROLAC TROMETHAMINE 15 MG/ML VIAL IVPUSH PRN (16:13)
[2023-08-16] MEDS ORDERED: AZTREONAM 1 GM VIAL (RESTRICTED TO ID) ONE (16:52)
[2023-08-16] MEDS: AZTREONAM 1 GM in DEXTROSE 5%-WATER - 50 ML IVPB SCH (16:59)
[2023-08-16] MEDS: TRIMETHOBENZAMIDE HCL 200MG/2ML INJ IM ONE (23:32)
[2023-08-17] MEDS: MELATONIN 1 MG TABLET PO SCH (01:39)
[2023-08-17 10:36] LABS: BASO % 0.4 % (0-2.0); EOS % 0.5 % (0-4.5); HEMATOCRIT 34.7 % (32.4-45.2); HEMOGLOBIN 11.7 GM/dL (10.7-15.3); LYMPH % 23.3 % (8-40); MCH 29.9 pg (25.7-33.7); MCHC 33.7 g/dl (32.0-36.0); MEAN CELL VOLUME 88.8 fl (80-96); MEAN PLT VOLUME 6.9 fl (7.5-11.1); MONO % 11.2 % (3.8-10.2); NEUT % 64.6 % (42.8-82.8); PLATELET COUNT 308 10^3/uL (134-434); RBC 3.91 M/mm3 (3.60-5.2); RDW 15.1 % (11.6-15.6); WHITE BLOOD COUNT 6.4 K/mm3 (4.0-10.0)
[2023-08-17 10:44] LABS: INR 1.11 (0.83-1.09); PROTHROMBIN TIME (PATIENT) 12.9 SEC (9.7-13.0)
[2023-08-17 10:47] LABS: ACTIVATED PTT 33.1 SECONDS (25.2-36.5)
[2023-08-17 10:59] LABS: POTASSIUM 3.5 mmol/L (3.5-5.1)
[2023-08-17 11:01] LABS: CALCIUM 8.4 mg/dL (8.5-10.1)
[2023-08-17 11:02] LABS: MAGNESIUM 1.9 mg/dL (1.8-2.4)
[2023-08-17 11:05] LABS: CREATININE 0.6 mg/dL (0.55-1.3); PHOSPHOROUS 3.5 mg/dL (2.5-4.9)
[2023-08-17 11:06] LABS: BILIRUBIN,TOTAL 0.4 mg/dL (0.2-1); TOT PROT 6.2 g/dl (6.4-8.2)
[2023-08-17 11:12] LABS: ALBUMIN 3.1 g/dl (3.4-5.0)
[2023-08-17 11:29] LABS: ERYTHROCYTE SEDIMENTATION RATE 28 mm/hr (0-20)
[2023-08-17] MEDS: AZTREONAM 1 GM in DEXTROSE 5%-WATER - 50 ML IVPB SCH (14:51)
[2023-08-17] MEDS: LINEZOLID 600 MG PREMIX BAG 600 MG in PREMIX 300 IVPB SCH (14:51)
[2023-08-17 15:05] VITALS: RESP 18
[2023-08-17] MEDS: POLYETHYLENE GLYCOL (HEALTHYLAX) 3350 17 GM PACKET PO SCH ×2 (17:11→21:49)
[2023-08-17] MEDS ORDERED: AZTREONAM 1 GM in DEXTROSE 5%-WATER - 50 ML IVPB SCH (18:00)
[2023-08-17] MEDS: ONDANSETRON 4 MG/2 ML VIAL IVPUSH PRN (21:49)
[2023-08-17] MEDS ORDERED: MELATONIN 1 MG TABLET PO SCH (22:00)
[2023-08-18 08:39] VITALS: BP 113/65; PULSE 59; TEMP 98.2
[2023-08-18 08:51] LABS: BASO % 0.4 % (0-2.0); EOS % 1.7 % (0-4.5); HEMATOCRIT 36.6 % (32.4-45.2); HEMOGLOBIN 12.2 GM/dL (10.7-15.3); LYMPH % 31.5 % (8-40); MCH 29.6 pg (25.7-33.7); MCHC 33.3 g/dl (32.0-36.0); MEAN PLT VOLUME 6.9 fl (7.5-11.1); MONO % 14.4 % (3.8-10.2); PLATELET COUNT 320 10^3/uL (134-434); RDW 14.8 % (11.6-15.6); WHITE BLOOD COUNT 5.1 K/mm3 (4.0-10.0)
[2023-08-18 09:02] LABS: POTASSIUM 4.1 mmol/L (3.5-5.1)
[2023-08-18 09:04] LABS: ALBUMIN 3.2 g/dl (3.4-5.0); BLOOD UREA NITROGEN 7.7 mg/dL (7-18); CALCIUM 9.1 mg/dL (8.5-10.1)
[2023-08-18 09:05] LABS: MAGNESIUM 2.1 mg/dL (1.8-2.4)
[2023-08-18 09:07] LABS: CREATININE 0.6 mg/dL (0.55-1.3)
[2023-08-18 09:09] LABS: BILIRUBIN,TOTAL 0.4 mg/dL (0.2-1); TOT PROT 6.8 g/dl (6.4-8.2)
[2023-08-18] MEDS ORDERED: MELATONIN 5 MG TABLETS PO SCH (09:25)
[2023-08-18 10:02] LABS: ERYTHROCYTE SEDIMENTATION RATE 31 mm/hr (0-20)
[2023-08-18] MEDS: LIDOCAINE 4% PATCH TP ONE (11:23)
[2023-08-18] MEDS ORDERED: LIDOCAINE PATCH REMOVAL MC ONE (22:00)
== END 2023-08-18 14:13 | disposition home or self-care (01) | DRG 254 ==
LOC: JER 23:39 → JERBED 08-16 05:17 → J8W 08-16 22:36
PROVIDERS: ADMIT Internal Medicine; ATTEND Nurse Practitioner Family
DX: K59.09 Other constipation (principal); K76.89 Other specified diseases of liver; E78.5 Hyperlipidemia, unspecified; J45.909 Unspecified asthma, uncomplicated; R11.2 Nausea with vomiting, unspecified
CPT/HCPCS: 0241U-QW; 36415; 72100-TC-FY; 74176-TC; 74178-TC; 80053; 81003; 83605; 83690; 83735; 84100; 84703; 85025; 85610; 85651; 85730; 86140; 86850; 86900; 86901; 87086; 87209; 93005; 93010; 99285-25; J0131; Q9967